=== PATIENT | female | born 1960 | race Caucasian/White ===

== ENCOUNTER → 2017-05-09 15:01 | Outpatient (CLI) | payer BC, SELFPAY ==
[2017-05-09 09:01] VITALS: BP 137/89; BMI 21.4
[2017-05-14 14:45] LABS: HPV APTIMA, High Risk Negative (Negative)
== END ==
PROVIDERS: Visit Provider Nurse Practitioner Women's Health
DX: Z12.4 Encounter for screening for malignant neoplasm of cervix (principal)
CPT/HCPCS: 88175; G0145

== ENCOUNTER → 2017-06-17 10:43 | Outpatient (CLI) | payer BC, SELFPAY ==
--- NOTE | 2017-06-17 10:46 | HPBI_ITS ---
MAMMOGRAPHY - BILATERAL SCREENING REASON FOR EXAM: Female, 56 years old. Routine annual screening examination. PERTINENT HISTORY: Non-contributory. TECHNIQUE: Digital bilateral breast moshe (3D mammographic acquisition) in the CC and MLO projections. 2-D mediolateral oblique (MLO) and craniocaudad (CC) views of both breasts were obtained. CAD: Full Field Digital Mammography with Computer Added Detection was performed. COMPARISON: Comparison is made with prior outside examination dated July 07, 2015. FINDINGS: Breast Composition: The breasts are heterogeneously dense, which may obscure small masses. There are no dominant masses or suspicious calcifications. No other significant abnormalities are identified. There has been no significant change since the prior study. HPBI/SCREENING MAMM (CAD), BILAT IMPRESSION: Stable bilateral screening mammogram. Yearly follow-up mammogram recommended. (A) ASSESSMENT CATEGORY: BIRADS Category 1: Negative. A letter regarding these results will be sent to the patient by the facility within 30 days. Approximately 10% of breast cancers are not detected by mammography. A normal mammogram should not delay biopsy of a clinically suspicious abnormality. [id number] Electronically Signed: Gage Manzanares MD at 14:08 EDT Tel [phone], Service support ,
== END ==
PROVIDERS: PCP Family Medicine; Visit Provider Nurse Practitioner Women's Health
DX: Z12.31 Encounter for screening mammogram for malignant neoplasm of breast (principal)
CPT/HCPCS: 77063; 77067

== ENCOUNTER 2018-12-09 09:00 | Outpatient (RCR) | payer BC, SELFPAY ==
[2018-07-15 13:15] VITALS: BMI 21.4
--- NOTE | 2018-11-10 13:36 | HP.PTEVAL ---
Patient's Visit Information JOSHUA COX is a 58 year old F referred to Physical Therapy by Dylan Oliveira MD with a diagnosis of B upper neck pain. Date of Evaluation: 11/10/18 Physical Therapist: Bladimir Oh DPT - Visit Plan Frequency: 2x /Week Duration: 4-6 Weeks Plan: Start with US to L levator scap, L UT, SNAG rotation, levator scap/UT stretch. May trial DN as well. - Subjective Findings: Pt. is here today for her initial evaluation with diagnosis of Bilateral upper back pain, neck pain. Pt. attributes this to over use, over work with job activities. Pt. used to go to chiropractor without issues, but has not been back in a while. Pt. reprots having migrains as well. Pt. reports increased pain with lifting and stretching. Pt. reports decreased pain with OTC meds, and limited activities. Pt. reports having increased tension in her neck with work and driving activities. Pt. is hopeful to reduce her symptoms to get backt to all recreational activities. - Pain Cervical spine Pain Intensity (Out of 10): 3 Pain Intensity Range: 1, 7 B shoulder Pain Intensity (Out of 10): 1 Pain Intensity Range: 0, 6 - Objective POSTURE: Pt. has sligth FH posture with rounded shoulders. Pt. is able to correct without change in symptoms. PALPATION: Pt. has increased symptoms along levator scapulea and UT L worse than R. No pain through suboccipitals and no pain with spring testing (hypomobility noted throughout cervical and thoracic spine). NEURO: Normal throughout. ROM: cervical spine- flexin min/nil loss mild Pulling, ext min loss increase NW on L side, rotation R min/mod loss increase NW on L side, rotation R nil loss NE, SL L min loss increase NW left side, SBR min loss incerase NW L side. MMT: 5/5 throughout shoulder and scapular region. - Special Tests C/S Radiculapathy - Left Spurlings: Negative C/S Radiculapathy - Right Spurlings: Negative C/S Radiculapathy - Left Cervical distraction: Negative C/S Radiculapathy - Right Cervical distraction: Negative Sharp Berenice: Negative Vertebral Artery Test: Negative Alar Ligament Test: Negative - Goals Goal 1:: Pt. to be I with HEP. Goal Time Frame: 4-6 Weeks Goal 2:: Pt. to have full cervical ROM without increase in symptoms. Goal Time Frame: 4-6 Weeks Goal 3:: Pt. to sleep throughout the night without increase in symptoms. Goal Time Frame: 4-6 Weeks Goal 4:: Pt. to resume all work activities without increase in symptoms. Goal Time Frame: 4-6 Weeks Goal 5:: Pt. to demonstrate improve posture throughout therapy session. Goal Time Frame: 4-6 Weeks - Rehabilitation Potential Physical Therapy Diagnosis: Pt. has signs and symptoms consistent with B neck pain with L worse than R. Pt. has increased tightness in her L UT and L levator scapulea. Pt. has decreased ROm of her neck especially with rotation to the L side. Pt. would benefit from PT to icnrease her cervical ROM, decrease muscle tension and decreased overall symptoms. Rehabilitation Potential: Good - Anticipated Interventions Patient/Client Instruction: Educate patient on: Condition, Plan of Care, Risk Factors, Benefits of Fitness Program For the Purpose of:: To improve health and function, To foster healthy habits, To improve decision making, To improve self management, To prevent re-injury Therapeutic Exercise to Include: Strength training, Power training, Endurance training, Body mechanics, Postural training, Flexibilty training For the Purpose of:: To increase ROM, To improve nutrient delivery to tissue, To increase oxygenation perfusion, To improve muscle performance and motor function, To improve health of tissue, To decrease soft tissue restriction, To increase flexibility/ROM Manual Therapy Techniques to Include: Mobilization, Manipulation, Passive ROM, Functional dry needling, Soft tissue mobilization For the Purpose of:: To decrease pain, To decrease swelling/inflammation, To increase ROM Ultrasound (thermal/non thermal): Yes For the Purpose of:: To decrease pain, To increase ROM Thank you for the opportunity to evaluate your patient. For Medicare and Medicare HMO plans, please review the plan of care and approve it. It will need to be FAXED BACK to us at [phone] for Medicare purposes. For Medicare only, by signing this I certify the plan of care. Please let me know if there are questions or concerns regarding this plan of care. Physician Signature: Date:
--- NOTE | 2019-05-05 09:18 | HP.PT.NRP ---
HP - Discharge Summary (1) - Patient Information JOSHUA COX was seen in my office for initial evaluation on 11/10/18. The following Plan of Care was established for this patient: Initial Frequency: 2x /Week Initial Duration: 4-6 Weeks - Anticipated Interventions Patient/Client Instruction: Educate patient on: Condition, Plan of Care, Risk Factors, Benefits of Fitness Program For the Purpose of:: To improve health and function, To foster healthy habits, To improve decision making, To improve self management, To prevent re-injury Therapeutic Exercise to Include: Strength training, Power training, Endurance training, Body mechanics, Postural training, Flexibilty training For the Purpose of:: To increase ROM, To improve nutrient delivery to tissue, To increase oxygenation perfusion, To improve muscle performance and motor function, To improve health of tissue, To decrease soft tissue restriction, To increase flexibility/ROM Manual Therapy Techniques to Include: Mobilization, Manipulation, Passive ROM, Functional dry needling, Soft tissue mobilization For the Purpose of:: To decrease pain, To decrease swelling/inflammation, To increase ROM Ultrasound (thermal/non thermal): Yes For the Purpose of:: To decrease pain, To increase ROM This patient was last seen in our office 12/02/18. Pertinent comments regarding their Physical therapy will appear below: PT. was seen in PT for her neck and UT pain. Pt. did well and was to continue on her own. Pt. has not been seen in several months and will be DC from PT at this point in time. At this point I will be discontinuing this patient from physical therapy. I would be happy to see this patient again in the future if found appropriate by the physician. Thank you! Bladimir Oh DPT
== END 2018-12-09 19:00 | disposition home or self-care (01) ==
LOC: PT 09:00
PROVIDERS: Family Provider Family Medicine; PCP Family Medicine; Referring Provider Family Medicine; Visit Provider Family Medicine
DX: M54.6 Pain in thoracic spine (principal); M54.2 Cervicalgia; G89.29 Other chronic pain; S46.819D Strain of other muscles, fascia and tendons at shoulder and upper arm level, unspecified arm, subsequent encounter
CPT/HCPCS: 97035; 97110; 97140; 97161

== ENCOUNTER → 2019-12-02 12:54 | Outpatient (CLI) | payer BC, SELFPAY ==
[2018-07-15 13:15] VITALS: BMI 21.4
--- NOTE | 2019-12-02 12:54 | BI_ITS ---
MAMMOGRAPHY - BILATERAL SCREENING REASON FOR EXAM: Female, 59 years old. Routine annual screening examination. PERTINENT HISTORY: Non-contributory. TECHNIQUE: Digital bilateral breast annabel (3D mammographic acquisition) in the CC and MLO projections. 2-D mediolateral oblique (MLO) and craniocaudad (CC) views of both breasts were obtained. CAD: Full Field Digital Mammography with Computer Added Detection was performed. COMPARISON: Comparison is made with prior study of 06/17/2017. FINDINGS: Breast Composition: The breasts are heterogeneously dense, which may obscure small masses. There are no dominant masses or suspicious calcifications. No other significant abnormalities are identified. There has been no significant change since the prior study. BI/SCREEN MAMM (CAD) W/ANNABEL BILAT IMPRESSION: Stable bilateral screening mammogram. Yearly follow-up mammogram recommended. (A) ASSESSMENT CATEGORY: BIRADS Category 1: Negative. A letter regarding these results will be sent to the patient by the facility within 30 days. Approximately 10% of breast cancers are not detected by mammography. A normal mammogram should not delay biopsy of a clinically suspicious abnormality. [id number] Electronically Signed: Gage Manzanares, at 14:28 EDT , Service support ,
== END ==
PROVIDERS: PCP Family Medicine; Referring Provider Nurse Practitioner Women's Health; Visit Provider Nurse Practitioner Women's Health
DX: Z12.31 Encounter for screening mammogram for malignant neoplasm of breast (principal)
CPT/HCPCS: 77063; 77067

== ENCOUNTER → 2020-01-04 12:05 | Outpatient (CLI) | payer BC, SELFPAY ==
[2019-12-02 13:37] VITALS: BMI 21.4
--- NOTE | 2020-01-04 12:08 | RAD_ITS ---
STUDY: X-RAY - CERVICAL SPINE REASON FOR EXAM: Female, 59 years old. CHRONIC NECK PAIN, PAIN RADIATED INTO LEFT ARM AND SHOULDER TECHNIQUE: 5 view(s) of the cervical spine were obtained. COMPARISON: None FINDINGS: No acute fracture, dislocation or osseous destruction. Odontoid intact. Lateral masses well aligned. Grade 1 spondylolisthesis at C5-6. Multilevel neural foraminal narrowing most severe at C4-5. Multilevel endplate spondylosis most severe at C5-6. Multilevel facet joint arthrosis predominating at the upper cervical spine (left greater than right). No significant soft tissue swelling. Normal lung apices. RAD/Cerv Spine 4 or 5 Views IMPRESSION: Cervical spine intact Degenerative changes predominating at C4-5 and C5-6 Electronically Signed: Farhan Connelly DO at 8:48 EDT Tel , Service support ,
== END ==
PROVIDERS: PCP Family Medicine; Referring Provider Family Medicine; Visit Provider Family Medicine
DX: M54.2 Cervicalgia (principal)
CPT/HCPCS: 72050

== ENCOUNTER → 2020-08-31 08:50 | Outpatient (CLI) | payer BC, SELFPAY ==
[2019-12-02 13:37] VITALS: BMI 21.4
[2020-08-31 10:37] LABS: Cholesterol 244 mg/dL (200); Glucose 83 mg/dL (74-106); High Density Lipoprotein 82 mg/dL; Triglycerides 83 mg/dL; Very Low Density Lipoprotein 17 mg/dL (5-40)
== END ==
PROVIDERS: PCP Family Medicine; Referring Provider Family Medicine; Visit Provider Family Medicine
DX: Z00.00 Encounter for general adult medical examination without abnormal findings (principal)
CPT/HCPCS: 36415; 80061; 82947

== ENCOUNTER 2020-11-25 19:50 | Emergency (ER) | payer BC, SELFPAY ==
[2020-11-25 19:50] VITALS: BP 130/88; PULSE 108; RESP 18; TEMP 36; O2SAT 94; BMI 20.6
[2020-11-25 20:14] LABS: Hemoglobin 13.9 g/dL (12.0-15.0); Mean Corp Hgb Conc 35.6 g/dL (32-36); Mean Corpuscular Hgb 28.4 pg (27.0-32.0); Mean Corpuscular Volume 79.6 fL (81-99); Mean Platelet Vol. 10.3 fl (6.2-12.0); Platelet Count 167 K/mm3 (150-450); RBC Distribution Width CV 11.9 % (11.6-14.6); RBC Distribution Width SD 34.4 fl (35.1-43.9); White Blood Count 3.7 K/mm3 (4.4-11.0)
[2020-11-25 21:29] LABS: ALB/GLOB Ratio 0.8 RATIO (0.9-2.4); AST(SGOT) 128 U/L (15-37); Alanine Aminotransfer ALT/SGPT 69 U/L (13-56); Albumin, Serum 3.1 g/dL (3.2-5.0); Alkaline Phosphatase 51 U/L (45-117); Anion Gap 6 (5-15); BUN 6 mg/dL (7-18); BUN/Creat Ratio 11.6 RATIO (10-20); Calcium,Total 7.8 mg/dL (8.5-10.1); Chloride 94 mmol/L (98-107); Creatinine, Serum 0.52 mg/dL (0.55-1.02); EST Glomerular Filtration Rate 129 mL/min (>60); Est Glom Filt Rate - Afr Amer 156 mL/min (>60); Estimated Creatinine Clearance 93.98 ml/min; Globulin 3.7 g/dL (2.2-4.2); Glucose 136 mg/dL (74-106); Potassium 3.7 mmol/L (3.5-5.1); Protein, Total 6.8 g/dL (6.4-8.2); Sodium Level 128 mmol/L (136-145)
[2020-11-25 21:59] LABS: Bacteria 0 SEEN /hpf (None Seen); Mucous, Urine 0 SEEN /hpf (<or=2+); Red Blood Cells-Urine 0 SEEN /hpf (0-5); Squamous Epithelial Cells - UA 0 SEEN /hpf (5-10); White Blood Cells 0 SEEN /hpf (0-5)
[2020-11-25 22:06] LABS: Color, Urine Yellow (Yellow); Glucose, Dipstick Normal (Normal); Ketone-Dipstick 5 mg/dl (Negative); Leukocyte Esterase-Dipstick Negative /ul (Negative); Nitrite-Dipstick Negative (Negative); Occult Blood-Urine 25 /ul (Negative); Protein-Dipstick 30 mg/dl (Negative); Urine Bilirubin Dipstick Negative (Negative); Urine Clarity Clear (Clear); Urine Urobilinogen Normal (Normal)
[2020-11-25 23:03] VITALS: BP 108/78; PULSE 97; RESP 20; TEMP 37.2; O2SAT 93
[2020-11-25] MEDS: Ondansetron 4 MG/2 ML Vial IV (23:28)
[2020-11-25] MEDS: Acetaminophen 500 MG Tablet PO (23:30)
--- NOTE | 2020-11-25 23:47 | EX.ED.DYSGE1 ---
HPI History of Present Illness Chief Complaint: Diarrhea Informant: patient Onset/Context/Timing Onset: Weeks (1) Context: Gradual Onset Timing: Continuous Quality: Cramping Location: Abdomen Worsened by: Nothing Relieved by: Ibuprofen Narrative Narrative: Patient presents with diarrhea and fatigue that has been getting worse over the last week. Patient had a recent dental extraction and was started on antibiotics for that. Patient states she was switched to a stronger antibiotic because the infection seemed to be getting worse. Patient states she started having diarrhea and stomach cramping after that. Patient also admits to a cough and some rhinorrhea. Patient took a home COVID-19 test yesterday which was positive. Patient states her also tested positive for COVID-19. Patient states her went to an urgent care and was also tested there for COVID-19 which was positive. Patient states she has been taking ibuprofen 800 mg tablets with some relief of her symptoms. Patient admits to low-grade fever at home. [facility] Medical History Abnormal Pap smear of cervix History of cervical cancer Migraines Transient global amnesia Home Medications epinephrine 0.3 mg/0.3 mL injection, auto-injector 0.3 mg IM ONCE 05/09/17 [History Last Taken Unknown] ferrous sulfate 325 mg (65 mg iron) tablet 325 mg PO TID tab 05/09/17 [History Last Taken Unknown] estradiol See Rx Instructions VAGINAL .COMPLEX #42.5 g 12/02/19 [Rx Last Taken Unknown] Allergy/AdvReac Type Severity Reaction Status Date / Time bee venom protein (honey bee) AdvReac Severe Anaphylaxis Verified 11/25/20 23:25 lactose AdvReac Intermediate Abd Verified 11/25/20 23:25 cramps/diarrhea Family History Father Heart disease Brother Heart disease Sister Heart disease Surgical History History of conization of cervix Social History Smoking Status: Never smoker alcohol intake: never substance use type: does not use caffeine: Yes what type of physical activity do you participate in: walking frequency: 1-2 times per week seatbelt use: always do you feel safe at home: Yes additional social history: 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 ROS ROS ED Constitutional Constitutional ED: Reports fever(s); Denies chills Eyes Eyes: Denies blurry vision or change in vision ENT ENT ED: Reports rhinorrhea; Denies sore throat Cardiovascular Cardiovascular: Denies chest pain or palpitations Respiratory/Chest Respiratory/Chest: Reports cough; Denies dyspnea Gastrointestinal Gastrointestinal: Reports abdominal pain and diarrhea; Denies nausea or vomiting Genitourinary Genitourinary ED: Denies dysuria or hematuria Musculoskeletal Musculoskeletal: Denies back pain or neck pain Integumentary Denies abscess or rash Neurologic Neurologic: Denies headache(s) or weakness Allergic/Immunologic Allergic/Immunologic ED: Denies mouth swelling or urticaria EXAM Physical Exam Const Vital Signs: 11/25/20 19:50 11/25/20 23:03 Temperature 96.8 F L 98.9 F Temperature Source Temporal Oral Pulse Rate 108 H 97 Respiratory Rate 18 20 H Blood Pressure 130/88 H 108/78 Blood Pressure Mean 102 88 Pulse Ox 94 93 Oxygen Delivery Method Room Air Room Air Positive well nourished and well developed General Appearance ED: well developed HEENT Reports moist mucous membranes HEENT Narrative: Oral mucosa is pink and moist. There is no evidence of any infection around the dental extraction site. There is no discharge or drainage. There is no bleeding. Neck supple and no JVD Chest Wall inspection of chest normal and palpation of chest normal Resp normal respiratory effort and clear to auscultation bilaterally Cardio regular rate and regular rhythm GI normal to inspection, nondistended, normoactive bowel sounds and non-tender Palpation: soft Neuro oriented x3, CN's II-XII intact bilaterally and no sensory deficits noted Sensorium / Orientation: alert Motor Exam: strength 5/5 throughout Psych mental status grossly normal MDM MDM MDM Narrative Medical decision making narrative: CBC shows a white blood cell count of 3.7. Comprehensive metabolic profile showed a mild hyponatremia of 128 and chloride of 94. Urinalysis does not show any evidence of urinary tract infection. COVID-19 rapid antigen was obtained here and was negative. Since she was on antibiotics recently, stool was sent for C. difficile. This is pending. Patient was given Zofran and Tylenol. Patient was advised of her findings. Since her as tested positive for Covid, patient was advised that the symptoms could still be from Covid even though her rapid antigen was negative. Patient was given Covid precautions. Patient was instructed to follow-up with her primary care physician in 3 to 5 days. Patient was instructed continue Tylenol or ibuprofen as needed for pain or aches. Patient understood and was agreeable with the plan. All questions were answered. Lab Data Attestation: I reviewed the patient's lab results. Labs: Laboratory Results - last 24 hr 11/25/20 11/25/20 11/25/20 20:02 20:02 21:50 WBC 3.7 L RBC 4.90 Hgb 13.9 Hct 39.0 MCV 79.6 L MCH 28.4 MCHC 35.6 RDW Std Deviation 34.4 L RDW Coeff of Trevor 11.9 Plt Count 167 MPV 10.3 Sodium 128 L Potassium 3.7 Chloride 94 L Carbon Dioxide 28.0 Anion Gap 6 BUN 6 L Creatinine 0.52 L Estim Creat Clear Calc 93.98 Est GFR (MDRD) Af Amer 156 Est GFR (MDRD) Non-Af 129 BUN/Creatinine Ratio 11.6 Glucose 136 H Calcium 7.8 L Total Bilirubin 0.40 AST 128 H ALT 69 H Alkaline Phosphatase 51 Total Protein 6.8 Albumin 3.1 L Globulin 3.7 Albumin/Globulin Ratio 0.8 L Urine Color Yellow Urine Clarity Clear Urine pH 7.0 Ur Specific [place] 1.010 Urine Protein 30 H Urine Glucose (UA) Normal Urine Ketones 5 H Urine Occult Blood 25 H Urine Nitrite Negative Urine Bilirubin Negative Urine Urobilinogen Normal Ur Leukocyte Esterase Negative Urine RBC 0 SEEN Urine WBC 0 SEEN Ur Squamous Epith Cells 0 SEEN Urine Bacteria 0 SEEN Urine Mucus 0 SEEN Discharge Plan Triage Chief Complaint: Diarrhea ED Provider: Farhan Perea Dx/Rx/DC Orders Clinical Impression: Viral illness, COVID-19 Instructions: Coronavirus Disease 2019 (COVID-19): Caring for Yourself or Others Prescriptions: No Action ferrous sulfate 325 mg (65 mg iron) tablet 325 mg PO TID RF: 0 epinephrine 0.3 mg/0.3 mL auto-injector 0.3 mg IM ONCE RF: 0 estradiol [Estrace] 0.01 % (0.1 mg/gram) cream See Rx Instructions vaginal .COMPLEX Qty: 42.5 RF: 2 Primary Care Provider: Dylan Oliveira Referrals: Dylan Oliveira MD [Primary Care Provider] - 5-7 Days Disposition Disposition: Home, Self Care
[2020-11-26 00:10] VITALS: BP 110/73; PULSE 73; RESP 24; O2SAT 95
== END 2020-11-26 00:12 | disposition home or self-care (01) ==
PROVIDERS: Emergency Provider Emergency Medicine; PCP Family Medicine
DX: U07.1 COVID-19 (principal); E87.1 Hypo-osmolality and hyponatremia; R19.7 Diarrhea, unspecified; R10.9 Unspecified abdominal pain; Z85.41 Personal history of malignant neoplasm of cervix uteri
CPT/HCPCS: 80053; 81001; 85027; 87426; 87493; 96374; 99284; J7030; A4216; J2405

== ENCOUNTER 2020-11-28 12:32 | Inpatient (IN) | payer BC, SELFPAY ==
[2020-11-28] VITALS (11 sets, daily range): BP systolic 124–130; BP diastolic 73–89; PULSE 72–97; RESP 16–23; TEMP 36.3–37.4; O2SAT 86–98; BMI 20.3; BMI 20.7
--- NOTE | 2020-11-28 13:01 | EKG12_ITS ---
Test Reason : Blood Pressure : / mmHG Vent. Rate : 076 BPM Atrial Rate : 076 BPM P-R Int : 126 ms QRS Dur : 084 ms QT Int : 364 ms P-R-T Axes : 049 000 019 degrees QTc Int : 409 ms Sinus rhythm with occasional Premature ventricular complexes Otherwise normal ECG Confirmed by SRIRAM MAYS, HALI ([id number]), restaurant expeditor ANA RICHARD ([id number]) on 11/30/2020 9:34:45 AM Referred By: JOLLY Confirmed By:HALI BHATIA MD
--- NOTE | 2020-11-28 13:04 | EX.ED.DYSGE1 ---
HPI History of Present Illness Chief Complaint: Nausea/Vomiting Detail of Chief Complaint: Weakness and low pulse ox Informant: patient and family Onset/Context/Timing Onset: Today (Low pulse ox noted this morning) and Days (Onset of illness 6 days ago and read HPI narrative) Context: Sudden Onset Timing: Continuous Quality: Generalized weakness, nausea, diarrhea, shortness of breath Current Severity: Mild Maximum Severity: Severe Worsened by: Dyspnea on exertion and lightheadedness with standing Relieved by: Nothing Associated Symptoms Associated Symptoms: Poor p.o. intake and fever Narrative Narrative: Patient is 60-year-old woman who presents because of generalized illness. Her illness started when she had complications due to tooth implant. The implant got infected. She was placed on 2 sets of antibiotics. She subsequently developed diarrhea. She then began to feel worse. She and her did a home Covid test which was positive. She apparently was seen end of last week and had a negative Covid test. She has had poor p.o. intake of lung problems. She denies black or maroon-colored stool. She denies blood or mucus in the diarrhea. She is not had a loose stool since yesterday. Her daughter gave her Imodium. She still feels nauseous. She still complains of generalized weakness. Daughter states she has not done much for the past 2 to 3 days and had poor p.o. intake. Prior similar symptoms: Yes Recent Illness/Hospitalization: Yes [facility] Medical History Abnormal Pap smear of cervix History of cervical cancer Migraines Transient global amnesia Home Medications epinephrine 0.3 mg/0.3 mL injection, auto-injector 0.3 mg IM ONCE 05/09/17 [History Last Taken Unknown] estradiol See Rx Instructions VAGINAL .COMPLEX #42.5 g 12/02/19 [Rx Last Taken Unknown] Allergy/AdvReac Type Severity Reaction Status Date / Time bee venom protein (honey bee) AdvReac Severe Anaphylaxis Verified 11/28/20 12:37 lactose AdvReac Intermediate Abd Verified 11/28/20 12:37 cramps/diarrhea Family History Father Heart disease Brother Heart disease Sister Heart disease Surgical History History of conization of cervix Social History (Updated 11/28/20 @ 13:[address] Loyd Persaud MD) household members: spouse housing: house Smoking Status: Never smoker alcohol intake: never substance use type: does not use caffeine: Yes what type of physical activity do you participate in: walking frequency: 1-2 times per week seatbelt use: always do you feel safe at home: Yes additional social history: Sushant Mcintyre ROS ROS ED Constitutional Constitutional ED: Reports chills, fever(s) and sweats Eyes Eyes: Denies blurry vision, change in vision or diplopia ENT ENT ED: Reports sore throat; Denies ear pain or rhinorrhea Cardiovascular Cardiovascular: Denies chest pain, orthopnea, palpitations or paroxysmal nocturnal dyspnea Respiratory/Chest Respiratory/Chest: Reports cough, dyspnea and dyspnea on exertion; Denies orthopnea or paroxysmal nocturnal dyspnea Gastrointestinal Gastrointestinal: Reports abdominal pain, diarrhea, nausea and vomiting; Denies constipation or melena Genitourinary Genitourinary ED: Denies dysuria, hematuria or urinary frequency Musculoskeletal Musculoskeletal: Reports arthralgias and myalgias; Denies back pain or neck pain Integumentary Denies rash Neurologic Neurologic: Reports weakness; Denies headache(s) or paresthesias Endocrine Endocrinology: Denies polydipsia, polyphagia or polyuria Allergic/Immunologic Allergic/Immunologic ED: Denies urticaria EXAM Physical Exam Const Vital Signs: 11/28/20 12:34 11/28/20 12:36 11/28/20 12:45 Temperature 97.8 F 97.8 F Temperature Source Temporal Temporal Pulse Rate 72 72 Respiratory Rate 20 H 20 H Blood Pressure 124/82 H 124/82 H Blood Pressure Mean 96 96 Pulse Ox 87 95 95 Oxygen Delivery Method Room Air Nasal Cannula Nasal Cannula Oxygen Flow Rate (L/min) 2 11/28/20 13:23 11/28/20 15:00 Temperature 98.6 F Temperature Source Temporal Pulse Rate 81 Respiratory Rate 23 H Blood Pressure 129/89 H Blood Pressure Mean 102 Pulse Ox 97 98 Oxygen Delivery Method Room Air Nasal Cannula Oxygen Flow Rate (L/min) 2 Positive well nourished and well developed General Appearance ED: well developed and other Patient does not appear well. Vital signs are remarkable for low pulse ox. ; Negative for cyanotic or diaphoretic HEENT Reports TM's clear and dry mucous membranes HEENT Narrative: Head is atraumatic normocephalic. Ears normal. Nares patent. Tympanic Membrane ED: Yes TM's clear Mouth ED: Yes dry mucous membranes Mouth: dry mucous membranes Eyes PERRL and EOMs intact bilaterally General Eye ED: Negative for pale conjunctiva or scleral icterus Neck no lymphadenopathy, supple and no JVD Chest Wall inspection of chest normal Resp normal respiratory effort Auscultation: rales bilateral lower and diminished lung sounds Cardio regular rate, regular rhythm, S1 normal heart sound, S2 normal heart sound and no murmurs GI normal to inspection, nondistended, normoactive bowel sounds, non-tender and non-distended Palpation: soft Back/Spine no CVA tenderness Cervical Spine: Negative for cervical spine tenderness Thoracic Spine / Upper Back: Negative for thoracic spinal tenderness or paraspinal muscle tenderness Lumbar Spine / Lower Back: Negative for lumbar spinal tenderness Extremity normal to inspection General Extremety ED: Negative for edema or tenderness General Extremity: Negative for edema Neuro oriented x3, CN's II-XII intact bilaterally and no sensory deficits noted Sensorium / Orientation: Negative for alert Motor Exam: strength 5/5 throughout Psych mental status grossly normal Skin no rashes or lesions noted, no wounds and skin turgor normal MDM MDM MDM Narrative Medical decision making narrative: Likely patient has pneumonia. Will repeat Covid test determined this is Covid pneumonia versus bacterial. Work-up was undertaken to assess for endorgan dysfunction. If there is evidence of infection will treat with antibiotics for community-acquired pneumonia. To help differentiate if Covid test is negative Miranda Odilia test was obtained. Suspect this is Covid since her had 2+ Covid test. Lab Data Attestation: I reviewed the patient's lab results. Lab results narrative: In light of the fact that patient's has Covid, she is neutropenic and has bilateral interstitial infiltrates patient in all likelihood has Covid. Since she is hypoxic she will require admission to the hospital. BUN and creatinine are normal. Labs: Laboratory Results - last 24 hr 11/28/20 11/28/20 11/28/20 12:57 12:57 13:15 WBC 3.4 L RBC 4.66 Hgb 13.2 Hct 38.5 MCV 82.6 MCH 28.3 MCHC 34.3 RDW Std Deviation 36.9 RDW Coeff of Trevor 12.2 Plt Count 224 MPV 9.7 Immature Gran % (Auto) 1.200 H Neut % (Auto) 71.6 H Lymph % (Auto) 16.1 L [place] % (Auto) 10.8 H Eos % (Auto) 0.0 Baso % (Auto) 0.3 Absolute Neuts (auto) 2.5 Absolute Lymphs (auto) 0.55 L Nucleated RBC % 0 Differential Comment COMMENT Diff Path Review May foll Sodium 132 L Potassium 4.1 Chloride 97 L Carbon Dioxide 30.0 Anion Gap 5 BUN 6 L Creatinine 0.42 L Estim Creat Clear Calc 115.83 Est GFR (MDRD) Af Amer 200 Est GFR (MDRD) Non-Af 165 BUN/Creatinine Ratio 14.5 Glucose 121 H Lactic Acid Calcium 8.0 L Total Bilirubin 0.40 AST 112 H ALT 76 H Alkaline Phosphatase 51 Total Protein 6.4 Albumin 2.7 L Globulin 3.7 Albumin/Globulin Ratio 0.7 L Procalcitonin COVID-19 (CRUZ) Positive 11/28/20 11/28/20 13:19 13:19 WBC RBC Hgb Hct MCV MCH MCHC RDW Std Deviation RDW Coeff of Trevor Plt Count MPV Immature Gran % (Auto) Neut % (Auto) Lymph % (Auto) [place] % (Auto) Eos % (Auto) Baso % (Auto) Absolute Neuts (auto) Absolute Lymphs (auto) Nucleated RBC % Differential Comment Diff Path Review Sodium Potassium Chloride Carbon Dioxide Anion Gap BUN Creatinine Estim Creat Clear Calc Est GFR (MDRD) Af Amer Est GFR (MDRD) Non-Af BUN/Creatinine Ratio Glucose Lactic Acid 0.9 Calcium Total Bilirubin AST ALT Alkaline Phosphatase Total Protein Albumin Globulin Albumin/Globulin Ratio Procalcitonin 0.04 COVID-19 (CRUZ) Radiography Chest X-Ray - ED: 1 View, Read by ED Physician, Heart, Mediastinum, Bony Structures, Right Infiltrate and Left Infiltrate Diagnostic Testing: Radiology Impression Chest X-Ray 11/28/20 13:16 IMPRESSION: Multifocal bilateral peripheral patchy airspace opacities (suspected typical/atypical infection) Electronically Signed: Farhan Connelly DO at 13:49 EDT Tel , Service support , EKG Initial EKG: Attestation: I personally reviewed and interpreted this EKG as follows: Interpretation: Sinus Rhythm (Sinus rhythm with a ventricular rate of 76. There are premature ventricular beats noted. NE interval is 126 ms. QRS duration 84 ms. QT duration 3 and 64 ms. [place] is normal.) Discharge Plan Dx/Rx/DC Orders Clinical Impression: Pneumonia due to 2019 novel coronavirus, Acute respiratory failure with hypoxia, Neutropenia due to infection Disposition Disposition: Acute Care Hospital [facility]
--- NOTE | 2020-11-28 13:16 | RAD_ITS ---
STUDY: X-RAY CHEST REASON FOR EXAM: Female, 60 years old. cough TECHNIQUE: Single AP portable view of the chest. COMPARISON: None. FINDINGS: Cardiac silhouette unremarkable. Pulmonary vascularity unremarkable. Aorta unremarkable. Multifocal bilateral peripheral patchy airspace opacities. No pleural effusions. Upper abdomen unremarkable. Osseous structures intact. No pneumothorax. RAD/Chest 1 View (Portable) IMPRESSION: Multifocal bilateral peripheral patchy airspace opacities (suspected typical/atypical infection) Electronically Signed: Farhan Connelly DO at 13:49 EDT Tel , Service support ,
[2020-11-28] MEDS: Ondansetron 4 MG/2 ML Vial IV ×3 (13:27→20:34)
[2020-11-28 13:43] LABS: Absolute Lymphocyte Count 0.55 X10^3/uL (0.83-4.51); Absolute Neutrophil Count 2.5 X10^3/uL (2.0-7.7); Basophil# 0.01 X10^3/uL; Basophil% 0.3 % (0-1); Hematocrit 38.5 % (37-47); Hemoglobin 13.2 g/dL (12.0-15.0); Lymphocyte # 0.55 X10^3/ul (0.83-4.51); Lymphocyte % 16.1 % (19-41); Mean Corp Hgb Conc 34.3 g/dL (32-36); Mean Corpuscular Hgb 28.3 pg (27.0-32.0); Mean Corpuscular Volume 82.6 fL (81-99); Mean Platelet Vol. 9.7 fl (6.2-12.0); Monocyte# 0.37 X10^3/uL; Monocyte% 10.8 % (0-10); NRBC Flagged by Analyzer 0 % (0-5); Neutrophil # 2.45 X10^3/uL (2.7-7.7); Neutrophil % 71.6 % (47-70); POSITIVE DIFFERENTIAL YES; POSITIVE MORPHOLOGY YES; Platelet Count 224 K/mm3 (150-450); RBC Distribution Width CV 12.2 % (11.6-14.6); RBC Distribution Width SD 36.9 fl (35.1-43.9); Red Blood Count 4.66 M/mm3 (4.2-5.4); White Blood Count 3.4 K/mm3 (4.4-11.0)
[2020-11-28 13:45] LABS: Differential Indicated SCAN CRITERIA MET
[2020-11-28 13:55] LABS: ALB/GLOB Ratio 0.7 RATIO (0.9-2.4); AST(SGOT) 112 U/L (15-37); Alanine Aminotransfer ALT/SGPT 76 U/L (13-56); Albumin, Serum 2.7 g/dL (3.2-5.0); Alkaline Phosphatase 51 U/L (45-117); Anion Gap 5 (5-15); BUN 6 mg/dL (7-18); BUN/Creat Ratio 14.5 RATIO (10-20); Chloride 97 mmol/L (98-107); Creatinine, Serum 0.42 mg/dL (0.55-1.02); EST Glomerular Filtration Rate 165 mL/min (>60); Est Glom Filt Rate - Afr Amer 200 mL/min (>60); Estimated Creatinine Clearance 115.83 ml/min; Globulin 3.7 g/dL (2.2-4.2); Glucose 121 mg/dL (74-106); Potassium 4.1 mmol/L (3.5-5.1); Protein, Total 6.4 g/dL (6.4-8.2); Sodium Level 132 mmol/L (136-145)
[2020-11-28 14:08] LABS: Lactic Acid 0.9 mmol/L (0.4-1.9)
[2020-11-28 14:26] LABS: Procalcitonin 0.04 ng/mL (0.00-0.09)
--- NOTE | 2020-11-28 14:50 | PCM.HP.STD ---
HPI - General General Date of Admission: 11/28/20 HPI Narrative JOSHUA COX, is a 60 F who presents via the ED on 11/28/2020 with a complaint of nausea and vomiting. She has a PMH as outlined. Her symptoms started 6-7 days ago, with associated shortness of breath. She had a tooth implant a few weeks ago, with resultant infection. She was placed on 2 different antibiotics, and started having diarrhea subsequently. Her tested positive for COVID, so as her symptoms worsened, she also tested for covid. Her home Covid test was positive. She also had on outpatient Covid test done a few days ago which was however negative. Patient has been progressively getting worse and getting more short of breath and weaker with associated nausea and decreased oral intake. She therefore decided come into the ED today. Vitals in the ED showed temperature of 98.6 Fahrenheit with pulse rate of 81, blood pressure of 129/89, respiratory rate of 23 and pulse ox of 98% on 2 L of oxygen. CBC showed WBC of 3.4 with hemoglobin of 13.2 and platelets of 244. Chemistry shows sodium of 132 and creatinine of 0.42 with elevated AST of 112 and ALT of 76. Covid PCR was positive. Chest x-ray showed multifocal bilateral peripheral patchy airspace disease. She has been admitted to be managed for acute hypoxic respiratory insufficiency due to COVID-19 infection. [facility] Medical History (Updated 11/28/20 @ 17:48 by Alka Sousa) Abnormal Pap smear of cervix Anxiety History of cervical cancer Migraines Post-menopausal Transient global amnesia Home Medications epinephrine 0.3 mg/0.3 mL injection, auto-injector 0.3 mg IM ONCE PRN 05/09/17 [History Last Taken Unknown] estradiol See Rx Instructions VAGINAL .COMPLEX #42.5 g 12/02/19 [Rx Last Taken Unknown] Allergy/AdvReac Type Severity Reaction Status Date / Time bee venom protein (honey bee) AdvReac Severe Anaphylaxis Verified 11/28/20 12:37 lactose AdvReac Intermediate Abd Verified 11/28/20 12:37 cramps/diarrhea Family History Father Heart disease Brother Heart disease Sister Heart disease Surgical History History of conization of cervix Social History (Updated 11/28/20 @ 13:[address] Loyd Persaud MD) household members: spouse housing: house Smoking Status: Never smoker alcohol intake: never substance use type: does not use caffeine: Yes what type of physical activity do you participate in: walking frequency: 1-2 times per week seatbelt use: always do you feel safe at home: Yes additional social history: Sushant Ramos [facility] Constitutional Constitutional: Reports anorexia, chills, fatigue, malaise and weakness; Denies change in weight, fever(s) or night sweats Eyes Eyes: Denies change in vision ENT HEENT: Denies dysphagia, headache(s), nasal congestion, nasal discharge or sore throat Cardiovascular Cardiovascular: Reports dyspnea on exertion; Denies chest pain, edema, lightheadedness, paroxysmal nocturnal dyspnea, rapid heart rate or syncope Respiratory/Chest Respiratory/Chest: Reports cough, dyspnea, shortness of breath at rest and shortness of breath with exertion; Denies excessive phlegm production, hemoptysis, productive cough or wheezing Gastrointestinal Gastrointestinal: Reports constipation, nausea and vomiting; Denies abdominal pain, diarrhea or dyspepsia Genitourinary Genitourinary: Denies burning urination, dysuria or urinary frequency Musculoskeletal Musculoskeletal: Denies back pain, joint stiffness or joint swelling Neurologic Neurologic: Denies confusion, dizziness, focal weakness, seizures or syncope Psychiatric Psychiatric: Denies anxiety or depression Hematologic/Lymphatic Hematologic/Lymphatic: Denies anemia Allergic/Immunologic Allergic/Immunologic: Denies asthma Vital Signs Vital Signs Vital Signs: 11/28/20 12:34 11/28/20 12:36 11/28/20 12:45 Temperature 97.8 F 97.8 F Temperature Source Temporal Temporal Pulse Rate 72 72 Respiratory Rate 20 H 20 H Blood Pressure 124/82 H 124/82 H Blood Pressure Mean 96 96 Pulse Ox 87 95 95 Oxygen Delivery Method Room Air Nasal Cannula Nasal Cannula Oxygen Flow Rate (L/min) 2 11/28/20 13:23 Temperature Temperature Source Pulse Rate Respiratory Rate Blood Pressure Blood Pressure Mean Pulse Ox 97 Oxygen Delivery Method Room Air Oxygen Flow Rate (L/min) Weight Weight: 115 lb Body Mass Index (BMI) 20.3 Physical Exam Const alert and oriented x3 Constitutional Narrative: lethargic General Appearance: cooperative HEENT hearing grossly normal bilaterally HEENT Narrative: dry mucosal membranes Eyes PERRL, EOMs intact bilaterally and conjunctivae normal Neck no lymphadenopathy Resp Resp Narrative: diminished breath sounds bibasally, no wheezes or crackles. On 2L of oxygen by nasal canula Cardio regular rate, regular rhythm, S1 normal heart sound, S2 normal heart sound and no murmurs GI normal to inspection, nondistended, normoactive bowel sounds, soft to palpation, non-tender and non-distended Extremity normal to inspection, full ROM and no clubbing, cyanosis or edema Peripheral Pulses: Yes pulses 2+ throughout Skin no rashes or lesions noted Neuro oriented x3, CN's II-XII intact bilaterally and moves all extremities Sensorium / Orientation: awake and alert Psych affect normal Results Lab / Micro Data Result Diagrams: 11/28/20 12:57 11/28/20 12:57 Labs: Laboratory Results - last 24 hr 11/28/20 12:57: WBC 3.4 L, RBC 4.66, Hgb 13.2, Hct 38.5, MCV 82.6, MCH 28.3, MCHC 34.3, RDW Std Deviation 36.9, RDW Coeff of Trevor 12.2, Plt Count 224, MPV 9.7, Immature Gran % (Auto) 1.200 H, Neut % (Auto) 71.6 H, Lymph % (Auto) 16.1 L, [place] % (Auto) 10.8 H, Eos % (Auto) 0.0, Baso % (Auto) 0.3, Absolute Neuts (auto) 2.5, Absolute Lymphs (auto) 0.55 L, Nucleated RBC % 0, Differential Comment COMMENT, Diff Path Review July foll 11/28/20 12:57: Sodium 132 L, Potassium 4.1, Chloride 97 L, Carbon Dioxide 30.0, Anion Gap 5, BUN 6 L, Creatinine 0.42 L, Estim Creat Clear Calc 115.83, Est GFR (MDRD) Af Amer 200, Est GFR (MDRD) Non-Af 165, BUN/Creatinine Ratio 14.5, Glucose 121 H, Calcium 8.0 L, Total Bilirubin 0.40, AST 112 H, ALT 76 H, Alkaline Phosphatase 51, Total Protein 6.4, Albumin 2.7 L, Globulin 3.7, Albumin/Globulin Ratio 0.7 L 11/28/20 13:19: Lactic Acid 0.9 11/28/20 13:19: Procalcitonin 0.04 Radiology Impression Chest X-Ray 11/28/20 13:16 IMPRESSION: Multifocal bilateral peripheral patchy airspace opacities (suspected typical/atypical infection) Electronically Signed: Farhan Connelly DO at 13:49 EDT Tel , Service support , Assessment & Plan Assessment/Plan (1) COVID-19: (2) Acute respiratory failure with hypoxia: PLAN: #Acute hypoxic respiratory insufficiency due to COVID 19 infection admit to med surg with telemetry start on IV decadron 6mg daily and IV remdesivir hydrate gently with IVF titrate oxygen to maintaiin sats >90% breathing treatment with bronchodilators consult ID IV [id number] prn DVT prophylaxis: lovenox. Check D dimer Code status: full code Patient and daughter counseled extensively about different types of CODE STATUS including full code, DNR CCA and DNR CCA, and the differences between them. Patient elects to be full code. Total [id number] time 18 minutes. Charges/Coding Visit Charges Inpatient E&M: 63982 Init Hosp L3 Procedures Hospitalists Procedures: 35749 Advncd Care Plan 30 Min
[2020-11-28 15:04] LABS: Probe Check PASS; Specimen Processing Control PASS
[2020-11-28] MEDS: 0.9% Normal Saline 1,000 ML 125 ML IV (18:06)
[2020-11-28 18:49] LABS: D-Dimer Quantitative (DVT/PE) 0.55 FEU/ug/m (0.27-0.49)
[2020-11-28 18:50] LABS: Alkaline Phosphatase 50 U/L (45-117); CPK Total, Creatine Kinase 179 U/L (26-192)
[2020-11-28] MEDS: guaiFENesin 10 ML UDC (200MG/10ML) 20 ML PO (20:34)
[2020-11-28] MEDS: Acetaminophen 325 MG Tablet 650 MG PO (20:34)
[2020-11-29] VITALS (14 sets, daily range): BP systolic 115–124; BP diastolic 74–83; PULSE 68–87; RESP 18; TEMP 36.6–37; O2SAT 93–97
--- NOTE | 2020-11-29 01:00 | PCS.PANDOC ---
PANDEMIC DOCUMENTATION INITIATED: Date: 11/14/2020 Time: 190
[2020-11-29] MEDS: 0.9% Normal Saline 1,000 ML 125 ML IV (03:11)
[2020-11-29] MEDS: proCHLORPERazine 10 MG/2 ML Vial 5 MG IV ×2 (03:42→20:49)
[2020-11-29] MEDS: guaiFENesin 10 ML UDC (200MG/10ML) 20 ML PO (03:42)
[2020-11-29] MEDS: oxyCODONE 5 MG Tablet PO (06:03)
[2020-11-29] MEDS: Acetaminophen 325 MG Tablet 650 MG PO ×2 (06:03→16:36)
[2020-11-29] MEDS: dexAMETHasone 4 MG Tablet 6 MG PO (06:03)
[2020-11-29] MEDS: Ondansetron 4 MG/2 ML Vial IV ×2 (06:04→16:36)
[2020-11-29 06:47] LABS: Absolute Lymphocyte Count 0.34 X10^3/uL (0.83-4.51); Basophil# 0.01 X10^3/uL; Basophil% 0.3 % (0-1); Hematocrit 36.1 % (37-47); Hemoglobin 11.8 g/dL (12.0-15.0); Lymphocyte # 0.34 X10^3/ul (0.83-4.51); Lymphocyte % 8.9 % (19-41); Mean Corp Hgb Conc 32.7 g/dL (32-36); Mean Corpuscular Hgb 27.7 pg (27.0-32.0); Mean Corpuscular Volume 84.7 fL (81-99); Mean Platelet Vol. 9.1 fl (6.2-12.0); Monocyte# 0.44 X10^3/uL; Monocyte% 11.5 % (0-10); NRBC Flagged by Analyzer 0 % (0-5); Neutrophil # 2.99 X10^3/uL (2.7-7.7); Neutrophil % 78.3 % (47-70); POSITIVE DIFFERENTIAL YES; POSITIVE MORPHOLOGY YES; Platelet Count 202 K/mm3 (150-450); RBC Distribution Width CV 11.9 % (11.6-14.6); RBC Distribution Width SD 36.6 fl (35.1-43.9); Red Blood Count 4.26 M/mm3 (4.2-5.4); White Blood Count 3.8 K/mm3 (4.4-11.0)
[2020-11-29 07:05] LABS: Differential Indicated SCAN CRITERIA MET
[2020-11-29 07:21] LABS: Differential Comment SCANNED
[2020-11-29 07:37] LABS: ALB/GLOB Ratio 0.7 RATIO (0.9-2.4); AST(SGOT) 80 U/L (15-37); Alanine Aminotransfer ALT/SGPT 70 U/L (13-56); Albumin, Serum 2.4 g/dL (3.2-5.0); Alkaline Phosphatase 51 U/L (45-117); Anion Gap 5 (5-15); BUN 6 mg/dL (7-18); BUN/Creat Ratio 17.3 RATIO (10-20); Calcium,Total 7.5 mg/dL (8.5-10.1); Chloride 105 mmol/L (98-107); Creatinine, Serum 0.35 mg/dL (0.55-1.02); EST Glomerular Filtration Rate 203 mL/min (>60); Est Glom Filt Rate - Afr Amer 246 mL/min (>60); Estimated Creatinine Clearance 139.63 ml/min; Globulin 3.5 g/dL (2.2-4.2); Glucose 101 mg/dL (74-106); Magnesium 2.1 mg/dL (1.6-2.6); Potassium 3.7 mmol/L (3.5-5.1); Protein, Total 5.9 g/dL (6.4-8.2); Sodium Level 137 mmol/L (136-145)
[2020-11-29] MEDS: Enoxaparin 40 MG/0.4 ML Syringe SC (08:59)
--- NOTE | 2020-11-29 10:11 | PCM.CONS.GEN ---
Assessment & Plan Assessment/Plan (1) COVID-19: PLAN: Sx started around 11/24, had been having some n/v/d while on augmentin prior to that for dental infection. On dex and remdesivir. Plan on 20 days quarantine from start of symptoms. She and household are unvaccinated. is monitoring pulse ox. Daughter is getting tested. Recommend vaccination in the next 1-2 months. Will follow, thank you (2) Acute respiratory failure with hypoxia: HPI Consult Data Date of Consult: 11/29/20 HPI Narrative HPI Narrative: JOSHUA COX, is a 60 F who presented with covid. Had dental infection, 11/16 given amoxicillin, then changed to augmentin. Started to have n/v/d around 11/19. dx with covid 11/24, and she started to have cough, fever, decreased appetite/po intake, mild aches. She came to ED 11/25, came back with worsened symptoms. Admitted, started on dex and remdesivir. Feeling about the same this AM. She is unvaccinated. Daughter at home is asymptomatic, unvaccinated, getting tested today. Full ROS performed and neg except as noted above. [facility] Medical History Abnormal Pap smear of cervix Anxiety History of cervical cancer Migraines Post-menopausal Transient global amnesia Home Medications epinephrine 0.3 mg/0.3 mL injection, auto-injector 0.3 mg IM ONCE PRN 05/09/17 [History Last Taken Unknown] estradiol See Rx Instructions VAGINAL .COMPLEX #42.5 g 12/02/19 [Rx Last Taken Unknown] Allergy/AdvReac Type Severity Reaction Status Date / Time bee venom protein (honey bee) AdvReac Severe Anaphylaxis Verified 11/28/20 12:37 lactose AdvReac Intermediate Abd Verified 11/28/20 12:37 cramps/diarrhea msg Allergy Hives Uncoded 11/28/20 18:28 Family History Father Heart disease Brother Heart disease Sister Heart disease Surgical History History of conization of cervix Social History (Updated 11/28/20 @ 13:[address] Loyd Persaud MD) household members: spouse housing: house Smoking Status: Never smoker alcohol intake: never substance use type: does not use caffeine: Yes what type of physical activity do you participate in: walking frequency: 1-2 times per week seatbelt use: always do you feel safe at home: Yes additional social history: Sushant Delacruz [facility] Physical Exam Const alert, oriented x3 and no apparent distress General Appearance: cooperative HEENT normocephalic and head/scalp atraumatic Eyes PERRL and EOMs intact bilaterally Neck supple and No nodes Lymph Lymphatic: no lymphadenopathy noted Resp clear to auscultation bilaterally Auscultation: diminished lung sounds Cardio regular rate and regular rhythm GI normal to inspection, nondistended, normoactive bowel sounds Extremity no clubbing, cyanosis or edema Skin no rashes or lesions noted Neuro CN's II-XII intact bilaterally Lab / Micro Data Result Diagrams: 11/29/20 06:38 11/29/20 06:38 Labs: Laboratory Results - last 24 hr 11/28/20 12:57: WBC 3.4 L, RBC 4.66, Hgb 13.2, Hct 38.5, MCV 82.6, MCH 28.3, MCHC 34.3, RDW Std Deviation 36.9, RDW Coeff of Trevor 12.2, Plt Count 224, MPV 9.7, Immature Gran % (Auto) 1.200 H, Neut % (Auto) 71.6 H, Lymph % (Auto) 16.1 L, [place] % (Auto) 10.8 H, Eos % (Auto) 0.0, Baso % (Auto) 0.3, Absolute Neuts (auto) 2.5, Absolute Lymphs (auto) 0.55 L, Nucleated RBC % 0, Differential Comment COMMENT, Diff Path Review July11/28/20 12:57: Sodium 132 L, Potassium 4.1, Chloride 97 L, Carbon Dioxide 30.0, Anion Gap 5, BUN 6 L, Creatinine 0.42 L, Estim Creat Clear Calc 115.83, Est GFR (MDRD) Af Amer 200, Est GFR (MDRD) Non-Af 165, BUN/Creatinine Ratio 14.5, Glucose 121 H, Calcium 8.0 L, Total Bilirubin 0.40, AST 112 H, ALT 76 H, Alkaline Phosphatase 51, Total Protein 6.4, Albumin 2.7 L, Globulin 3.7, Albumin/Globulin Ratio 0.7 L 11/28/20 12:57: Alkaline Phosphatase 50, Total Creatine Kinase 179 11/28/20 13:15: COVID-19 (CRUZ) Positive 11/28/20 13:19: Lactic Acid 0.9 11/28/20 13:19: Procalcitonin 0.04 11/28/20 18:20: D-Dimer Quant (PE/DVT) 0.55 H* 11/29/20 06:38: WBC 3.8 L, RBC 4.26, Hgb 11.8 L, Hct 36.1 L, MCV 84.7, MCH 27.7, MCHC 32.7, RDW Std Deviation 36.6, RDW Coeff of [place] 11.9, Plt Count 202, MPV 9.1, Immature Gran % (Auto) 1.000 H, Neut % (Auto) 78.3 H, Lymph % (Auto) 8.9 L, [place] % (Auto) 11.5 H, Eos % (Auto) 0.0, Baso % (Auto) 0.3, Absolute Neuts (auto) 3.0, Absolute Lymphs (auto) 0.34 L, Nucleated RBC % 0, Differential Comment SCANNED, Diff Path Review July11/29/20 06:38: Sodium 137, Potassium 3.7, Chloride 105, Carbon Dioxide 27.0, Anion Gap 5, BUN 6 L, Creatinine 0.35 L, Estim Creat Clear Calc 139.63, Est GFR (MDRD) Af Amer 246, Est GFR (MDRD) Non-Af 203, BUN/Creatinine Ratio 17.3, Glucose 101, Calcium 7.5 L, Magnesium 2.1, Total Bilirubin 0.40, AST 80 H, ALT 70 H, Alkaline Phosphatase 51, Total Protein 5.9 L, Albumin 2.4 L, Globulin 3.5, Albumin/Globulin Ratio 0.7 L Radiology Impression Chest X-Ray 11/28/20 13:16 IMPRESSION: Multifocal bilateral peripheral patchy airspace opacities (suspected typical/atypical infection) Electronically Signed: Farhan Connelly DO at 13:49 EDT Tel , Service support ,
--- NOTE | 2020-11-29 11:21 | PCM.PN.HOSP ---
Subjective Subjective Feels unless. Notes that tooth anchor site on lower right mandible is feeling better. Objective Data Objective Data Vital Signs: Vital Signs Temp Pulse Resp BP Pulse Ox 36.6 C 79 18 115/81 H 96 11/29/20 09:05 11/29/20 09:05 11/29/20 09:05 11/29/20 09:05 11/29/20 09:05 Oxygen Flow Rate (L/min) 2 Oxygen Delivery Method Nasal Cannula Weight: 53.07 kg Body Mass Index (BMI) 20.7 Intake & Output: Intake and Output for Last 24 Hours 11/27/20 11/28/20 11/29/20 23:59 23:59 23:59 Intake Total 1408.33 / 1408.33 821.25 / 821.25 Balance 1408.33 / 1408.33 821.25 / 821.25 Lab / Micro Data Result Diagrams: 11/29/20 06:38 11/29/20 06:38 Labs: Laboratory Results - last 24 hr 11/28/20 12:57: WBC 3.4 L, RBC 4.66, Hgb 13.2, Hct 38.5, MCV 82.6, MCH 28.3, MCHC 34.3, RDW Std Deviation 36.9, RDW Coeff of Trevor 12.2, Plt Count 224, MPV 9.7, Immature Gran % (Auto) 1.200 H, Neut % (Auto) 71.6 H, Lymph % (Auto) 16.1 L, [place] % (Auto) 10.8 H, Eos % (Auto) 0.0, Baso % (Auto) 0.3, Absolute Neuts (auto) 2.5, Absolute Lymphs (auto) 0.55 L, Nucleated RBC % 0, Differential Comment COMMENT, Diff Path Review July11/28/20 12:57: Sodium 132 L, Potassium 4.1, Chloride 97 L, Carbon Dioxide 30.0, Anion Gap 5, BUN 6 L, Creatinine 0.42 L, Estim Creat Clear Calc 115.83, Est GFR (MDRD) Af Amer 200, Est GFR (MDRD) Non-Af 165, BUN/Creatinine Ratio 14.5, Glucose 121 H, Calcium 8.0 L, Total Bilirubin 0.40, AST 112 H, ALT 76 H, Alkaline Phosphatase 51, Total Protein 6.4, Albumin 2.7 L, Globulin 3.7, Albumin/Globulin Ratio 0.7 L 11/28/20 12:57: Alkaline Phosphatase 50, Total Creatine Kinase 179 11/28/20 13:15: COVID-19 (CRUZ) Positive 11/28/20 13:19: Lactic Acid 0.9 11/28/20 13:19: Procalcitonin 0.04 11/28/20 18:20: D-Dimer Quant (PE/DVT) 0.55 H* 11/29/20 06:38: WBC 3.8 L, RBC 4.26, Hgb 11.8 L, Hct 36.1 L, MCV 84.7, MCH 27.7, MCHC 32.7, RDW Std Deviation 36.6, RDW Coeff of Trevor 11.9, Plt Count 202, MPV 9.1, Immature Gran % (Auto) 1.000 H, Neut % (Auto) 78.3 H, Lymph % (Auto) 8.9 L, [place] % (Auto) 11.5 H, Eos % (Auto) 0.0, Baso % (Auto) 0.3, Absolute Neuts (auto) 3.0, Absolute Lymphs (auto) 0.34 L, Nucleated RBC % 0, Differential Comment SCANNED, Diff Path Review July11/29/20 06:38: Sodium 137, Potassium 3.7, Chloride 105, Carbon Dioxide 27.0, Anion Gap 5, BUN 6 L, Creatinine 0.35 L, Estim Creat Clear Calc 139.63, Est GFR (MDRD) Af Amer 246, Est GFR (MDRD) Non-Af 203, BUN/Creatinine Ratio 17.3, Glucose 101, Calcium 7.5 L, Magnesium 2.1, Total Bilirubin 0.40, AST 80 H, ALT 70 H, Alkaline Phosphatase 51, Total Protein 5.9 L, Albumin 2.4 L, Globulin 3.5, Albumin/Globulin Ratio 0.7 L Radiography Diagnostic Testing: Radiology Impression Chest X-Ray 11/28/20 13:16 IMPRESSION: Multifocal bilateral peripheral patchy airspace opacities (suspected typical/atypical infection) Electronically Signed: Farhan Connelly DO at 13:49 EDT Tel , Service support , Physical Exam Const alert Resp normal respiratory effort, no retractions, no use of accessory muscles and clear to auscultation bilaterally Cardio regular rate, regular rhythm, S1 normal heart sound and S2 normal heart sound GI normal to inspection, nondistended, normoactive bowel sounds, soft to palpation, non-tender, non-distended and hepatosplenomegaly Assessment & Plan Assessment/Plan (1) COVID-19: PLAN: 1. acute COVID 19 pneumonia onset 11/24. Quarantine for 20 days Unvaccinated. Reason is she was advised not to do so before mammogram (despite it being widely available well beforehand) On dexamethasone and remdesivir 2. Acute hypoxic respiratory insufficiency Respiratory failure ruled out, at least at this point Turned off oxygen and she drifted down to 89% with just talking. Quickly improved to 95% on 2 liters Wean oxygen as tolerated 3. Recent dental implant/anchor infection Improving. Follow up with DDS once out of quarantine 4. VTE prophylaxis: LMWH Charges/Coding Visit Charges Inpatient E&M: 39978 Subs Hosp L2
--- NOTE | 2020-11-29 12:10 | CASEMGMT ---
MATEUS SMITH Assessment: Face to Face with pt for initial transition planning/care coordination assessment. MATEUS SMITH introduced self and role at [facility], pt voices understanding and consents to assessment. Pt is A/O x4 and answers all questions appropriately at this time. Pt sitting up in chair in no distress. Care providers, pharmacy, and demographics verified/updated. Admitting Dx: Covid 19 infection PCP: Jorge Oliveira Specialists: Pt denies having any specialists. [facility] Insurance: [employer] Prescription Benefit: yes LW/HPOA: Pt is not sure if she has a LW/DPOA. She states she thinks she did one years ago but does not know who her DPOA is. She declines need for further info on AD. LNOK: Adal Velasquez, ; Ami Velasquez, dtr Living Arrangements: Pt lives with and dtr in a two story house with three steps to enter. There are bedrooms and bathrooms on each level. Pt is using the main level currently. Pt reports being I in ADL's and denies concerns at home. Transportation: Pt drives self and denies concerns with transportation. DME/HHC/SNF: Pt denies having any DME, previous HHC or SNF stays. Pt states she received a positive test at home for COVID and then was tested at [facility]. Pt states her is also positive and they are quarantining from their dtr using separate bedrooms and bathrooms. They have family who can assist with groceries and supplies. Provided pt with local in network list of DME companies, pt chose [employer] should she need O2 upon dc. Pt states no concerns with going home at time of dc. Pt states no further concerns/needs. CM to follow. Advised pt to ask CM if any further question/concerns/needs arise, voices understanding. Pt Goal: Home Plan: Home
[2020-11-29 12:34] LABS: Pathologist Review Reviewed
[2020-11-29 12:36] LABS: Pathologist Review Reviewed
--- NOTE | 2020-11-29 13:24 | WOUNDNOTE ---
Assisted patient back into bed from chair. Pt states she was slightly lightheaded while up in chair. tolerated getting back to bed well. Denies further needs at this time.
[2020-11-29] MEDS: 0.9% Saline Lock 10 ML Syringe IV (20:50)
[2020-11-29] MEDS: MELATONIN 3 MG TABLET PO (23:15)
[2020-11-30] VITALS (11 sets, daily range): BP systolic 113–125; BP diastolic 76–78; PULSE 64–77; RESP 18–20; TEMP 36.9; O2SAT 90–94
[2020-11-30] MEDS: Ondansetron 4 MG/2 ML Vial IV (04:22)
[2020-11-30] MEDS: 0.9% Saline Lock 10 ML Syringe IV (04:28)
[2020-11-30 07:26] LABS: Hemoglobin 11.9 g/dL (12.0-15.0); Mean Corpuscular Hgb 28.2 pg (27.0-32.0); Mean Corpuscular Volume 82.9 fL (81-99); Mean Platelet Vol. 9.7 fl (6.2-12.0); Platelet Count 263 K/mm3 (150-450); RBC Distribution Width CV 11.8 % (11.6-14.6); RBC Distribution Width SD 35.7 fl (35.1-43.9); Red Blood Count 4.22 M/mm3 (4.2-5.4); White Blood Count 6.8 K/mm3 (4.4-11.0)
[2020-11-30 08:02] LABS: ALB/GLOB Ratio 0.7 RATIO (0.9-2.4); AST(SGOT) 39 U/L (15-37); Alanine Aminotransfer ALT/SGPT 54 U/L (13-56); Albumin, Serum 2.4 g/dL (3.2-5.0); Alkaline Phosphatase 52 U/L (45-117); Anion Gap 6 (5-15); BUN 10 mg/dL (7-18); BUN/Creat Ratio 28.8 RATIO (10-20); Calcium,Total 7.8 mg/dL (8.5-10.1); Chloride 100 mmol/L (98-107); Creatinine, Serum 0.35 mg/dL (0.55-1.02); EST Glomerular Filtration Rate 203 mL/min (>60); Est Glom Filt Rate - Afr Amer 246 mL/min (>60); Estimated Creatinine Clearance 139.63 ml/min; Globulin 3.6 g/dL (2.2-4.2); Glucose 103 mg/dL (74-106); Potassium 3.7 mmol/L (3.5-5.1); Sodium Level 133 mmol/L (136-145)
[2020-11-30] MEDS: Enoxaparin 40 MG/0.4 ML Syringe SC (08:44)
[2020-11-30] MEDS: dexAMETHasone 4 MG Tablet 6 MG PO (08:44)
[2020-11-30] MEDS: proCHLORPERazine 10 MG/2 ML Vial 5 MG IV (10:49)
--- NOTE | 2020-11-30 14:09 | PCM.DC ---
Discharge Instructions Diet Discharge Diet: No restrictions Activity Discharge Activity: Return to Normal Activity (ease back into normal routine. ) Additional Activity Instructions:: Self isolate for at least 20 days since symptoms began 11/24-12/14/2020 AND at least one day (24 hours) have passed since resolution of fever without the use of fever-reducing agents AND improvement of symptoms (e.g., cough, shortness of breath) When around people in the same room, wear a face mask. Individuals also in the room should wear a mask. If possible, use a different bathroom and bedroom. Perform adequate hand hygiene. Avoid sharing dishes, glasses, etc. Dressing / Incision Call your doctor if you observe: Fever of 101 or Higher and Shortness of breath Follow Up Care Test Results: Test results from this visit will be discussed in further detail at your follow-up appointment, if applicable. Discharge Plan Admission Admit Date/Time: 11/28/20 17:45 Primary Reason for Your Visit: COVID 19 Attending Provider: Farhan Montelongo Primary Care Provider: Dylan Oliveira Consulting Providers: Wolfgang Hernandez Discharge Orders/Prescriptions Prescriptions: New dexamethasone 6 mg tablet 6 mg PO DAILY 8 Days Qty: 8 RF: 0 Continued epinephrine 0.3 mg/0.3 mL auto-injector 0.3 mg IM ONCE PRN (Reason: dsryness) RF: 0 estradiol [Estrace] 0.01 % (0.1 mg/gram) cream See Rx Instructions vaginal .COMPLEX Qty: 42.5 RF: 2 Referrals / Follow Up: Dylan Oliveira MD [Primary Care Provider] - Within 1 Month Disposition Disposition (needs filled in before D/C Order can be placed): Home, Self Care
--- NOTE | 2020-11-30 14:15 | PCM.DC.SUM ---
Providers Date of Admission: 11/28/20 Primary Care Physician: Dr. Dylan Oliveira MD Consultations 11/28/20 17:47 Consult: Infectious Disease Routine Consulting Provider: Wolfgang Hernandez Reason for Consult: Covid-19 EMERGENT Consult: No MD Notified: Yes Date Notified: 11/29/20 Time Notified: 08:40 Method of Notification: Text Reason For Visit: COVID 19 INFECTION Diagnosis Discharge Diagnosis (1) COVID-19: Status: Acute Code(s): U07.1 - COVID-19 Medications at Discharge Home Medications epinephrine 0.3 mg/0.3 mL injection, auto-injector 0.3 mg IM ONCE PRN 05/09/17 estradiol See Rx Instructions VAGINAL .COMPLEX #42.5 g 12/02/19 dexamethasone 6 mg PO DAILY 8 Days #8 tab 11/30/20 Hospital Course Operations None Summary of Care Provided Minutes Spent on Discharge: 32 Hospital Course: 60-year-old female who had recent been dealing with a dental infection became sick again with was subsequently found to be COVID-19. Patient was unvaccinated and was started on dexamethasone and remdesivir. Patient was monitored and oxygenation did improve. Today the patient was ambulated in her room and she dropped down to 90% on room air. Patient did have some issues in regards to some motion sickness associated with the hospital bed and did have some vomiting with. Patient was observed for a few more hours and is overall feeling better and is feeling ready to go home. Patient advised to quarantine for a total of 20 days after the onset of her symptoms which is roughly around the 26. Patient advised also to get the vaccine on the next 1 to 2 months after she has convalesced from COVID-19. Physical Exam Narrative No respiratory distress. No conversational dyspnea. Patient was ambulated by marching continuously for 2 minutes dropped down to 90% on room air. Patient did some vomiting afterwards and during the retching. Her pulse ox did drop down to 89%. Eyes PERRL Resp normal respiratory effort, no retractions, no use of accessory muscles and clear to auscultation bilaterally Cardio regular rate, regular rhythm, S1 normal heart sound and S2 normal heart sound GI normal to inspection, nondistended, normoactive bowel sounds, soft to palpation, non-tender and non-distended Weight / BMI Weight Weight: 53.07 kg Body Mass Index (BMI) 20.7 ABG / Lab / Microbiology Data Result Diagrams: 11/30/20 06:35 11/30/20 06:35 Laboratory: Laboratory Results - last 24 hr 11/30/20 06:35: WBC 6.8, RBC 4.22, Hgb 11.9 L, Hct 35.0 L, MCV 82.9, MCH 28.2, MCHC 34.0, RDW Std Deviation 35.7, RDW Coeff of Trevor 11.8, Plt Count 263, MPV 9.7 11/30/20 06:35: Sodium 133 L, Potassium 3.7, Chloride 100, Carbon Dioxide 27.0, Anion Gap 6, BUN 10, Creatinine 0.35 L, Estim Creat Clear Calc 139.63, Est GFR (MDRD) Af Amer 246, Est GFR (MDRD) Non-Af 203, BUN/Creatinine Ratio 28.8 H, Glucose 103, Calcium 7.8 L, Total Bilirubin 0.40, AST 39 H, ALT 54, Alkaline Phosphatase 52, Total Protein 6.0 L, Albumin 2.4 L, Globulin 3.6, Albumin/Globulin Ratio 0.7 L Microbiology: Microbiology 11/28/20 13:19 Blood Culture (Wb) - Anticubital Left Blood Culture - Preliminary No growth in 48 hours. 11/28/20 13:12 Blood Culture (Wb) - Anticubital Right Blood Culture - Preliminary No growth in 48 hours. D/C Instructions Discharge Diet: No restrictions Additional Activity Instructions: Self isolate for at least 20 days since symptoms began 11/24-12/14/2020 AND at least one day (24 hours) have passed since resolution of fever without the use of fever-reducing agents AND improvement of symptoms (e.g., cough, shortness of breath) When around people in the same room, wear a face mask. Individuals also in the room should wear a mask. If possible, use a different bathroom and bedroom. Perform adequate hand hygiene. Avoid sharing dishes, glasses, etc. Call your doctor if you observe: Fever of 101 or Higher and Shortness of breath Meaningful Use Info Meaningful Use Diagnoses (Choose all that apply): None applicable Discharge Plan Admission Admit Date/Time: 11/28/20 17:45 Primary Reason for Your Visit: COVID 19 Attending Provider: Farhan Montelongo Primary Care Provider: Dylan Oliveira Consulting Providers: Wolfgang Hernandez Discharge Orders/Prescriptions Prescriptions: New dexamethasone 6 mg tablet 6 mg PO DAILY 8 Days Qty: 8 RF: 0 Continued epinephrine 0.3 mg/0.3 mL auto-injector 0.3 mg IM ONCE PRN (Reason: dsryness) RF: 0 estradiol [Estrace] 0.01 % (0.1 mg/gram) cream See Rx Instructions vaginal .COMPLEX Qty: 42.5 RF: 2 Referrals / Follow Up: Dylan Oliveira MD [Primary Care Provider] - Within 1 Month Disposition Disposition (needs filled in before D/C Order can be placed): Home, Self Care Charges/Coding Visit Charges Inpatient E&M: 16938 Disch Hosp
--- NOTE | 2020-11-30 15:29 | PHA.DC.MR ---
Pharmacy Service has performed discharge medication reconciliation for this patient. The patient's discharge medication list was reviewed for discrepancies and discrepancies were resolved. Attempted to call patient to public relations counselor, patient did not answer. Home Medications epinephrine 0.3 mg/0.3 mL injection, auto-injector 0.3 mg IM ONCE PRN 05/09/17 estradiol See Rx Instructions VAGINAL .COMPLEX #42.5 g 12/02/19 dexamethasone 6 mg PO DAILY 8 Days #8 tab 11/30/20
--- NOTE | 2020-12-01 15:01 | CASEMGMT ---
MATEUS CM Discharge Follow-Up Phone Call. Lace: 6 Strata: 2 Discharge Date: 11/30/20 Adm Dx: COVID Attempted discharge f/u phone call. No answer. Non-identifying VM received. Non-descript VM left requesting return call if there are any questions or concerns. Phone number provided. Aleksandra CORDOVA RN CM
== END 2020-11-30 16:05 | disposition home or self-care (01) | DRG 177 ==
LOC: ED 16:18 → MS3 18:10
PROVIDERS: Internal Medicine Infectious Disease; Admitting Provider Student in an Organized Health Care Education/Training Program; Emergency Provider Emergency Medicine; PCP Family Medicine
DX: U07.1 COVID-19 (principal); J12.82 Pneumonia due to coronavirus disease 2019; R09.02 Hypoxemia; R06.89 Other abnormalities of breathing; D70.3 Neutropenia due to infection; Z96.5 Presence of tooth-root and mandibular implants; Z85.41 Personal history of malignant neoplasm of cervix uteri
CPT/HCPCS: 36415; 71045; 80053; 82550; 83605; 83735; 84075; 84145; 85025; 85027; 85379; 87040; 87635; 93005; 97161; 97166; 99285; J7030; J7050; U0005; A4216; J2405; U0003

== ENCOUNTER → 2021-01-13 10:07 | Outpatient (CLI) | payer BC, SELFPAY ==
[2019-12-02 13:37] VITALS: BMI 21.4
--- NOTE | 2021-01-13 10:08 | BI_ITS ---
MAMMOGRAPHY - BILATERAL SCREENING REASON FOR EXAM: Female, 60 years old. Routine annual screening examination. PERTINENT HISTORY: Non-contributory. TECHNIQUE: Digital bilateral breast annabel (3D mammographic acquisition) in the CC and MLO projections. 2-D mediolateral oblique (MLO) and craniocaudad (CC) views of both breasts were obtained. CAD: Full Field Digital Mammography with Computer Added Detection was performed. COMPARISON: Comparison is made with prior study of 12/02/2019 and 06/17/2017. FINDINGS: Breast Composition: The breasts are heterogeneously dense, which may obscure small masses. There are no dominant masses or suspicious calcifications. No other significant abnormalities are identified. There has been no significant change since the prior study. BI/SCRN MAMM (CAD)W/ANNABEL BILAT IMPRESSION: Stable bilateral screening mammogram. Yearly follow-up mammogram recommended. (A) ASSESSMENT CATEGORY: BIRADS Category 1: Negative. A letter regarding these results will be sent to the patient by the facility within 30 days. Approximately 10% of breast cancers are not detected by mammography. A normal mammogram should not delay biopsy of a clinically suspicious abnormality. [id number] Electronically Signed: Gage Manzanares MD at 12:20 EDT , Service support ,
== END ==
PROVIDERS: PCP Family Medicine; Referring Provider Nurse Practitioner Women's Health; Visit Provider Nurse Practitioner Women's Health
DX: Z12.31 Encounter for screening mammogram for malignant neoplasm of breast (principal)
CPT/HCPCS: 77063; 77067

== ENCOUNTER 2022-10-25 20:34 | Emergency (ER) | payer BC, SELFPAY ==
[2022-10-25 20:36] VITALS: BP 148/99; PULSE 88; RESP 16; TEMP 36.3; O2SAT 98; BMI 21.9
--- NOTE | 2022-10-25 21:06 | EKG12_ITS ---
Test Reason : DYSRHYTHMIA Blood Pressure : / mmHG Vent. Rate : 087 BPM Atrial Rate : 087 BPM P-R Int : 130 ms QRS Dur : 082 ms QT Int : 358 ms P-R-T Axes : 052 -06 012 degrees QTc Int : 430 ms Normal sinus rhythm Normal ECG Confirmed by IMMANUEL MAYS, JULI ([id number]), film and video editor ANA RICHARD ([id number]) on 10/26/2022 9:23:54 AM Referred By: BHAVYA Confirmed By:JULI GAMBINO MD
--- NOTE | 2022-10-25 21:09 | EX.ED.DYSGE1 ---
HPI History of Present Illness Chief Complaint: Other, Pain/Inj Detail of Chief Complaint: Multiple symptoms and concern for cardiac pain Informant: patient Onset/Context/Timing Onset: Today (Episode early this morning that lasted 30 minutes, and see HPI narrative for further detail) Context: Sudden Onset Timing: Intermittent Quality: Discomfort Location: Superior right and left chest and anterior neck Current Severity: Mild Maximum Severity: Moderate Worsened by: Nothing Relieved by: Nothing Associated Symptoms Associated Symptoms: No associated symptoms that are concerning for cardiac. Did complain of nu Narrative Narrative: Patient is a 62-year-old woman who presents with chief complaint of head pain last evening. She took migraine medicine. She took another migraine medicine this morning. Migraine medicine consists of acetaminophen, aspirin and caffeine. She denies double vision, blurred vision loss of vision. Denies ringing in ears or decreased hearing. Denies trouble speech or swallowing. She denies chest pain but does complain of bilateral superior anterior chest discomfort located in the area of the clavicle and anterior right and left neck. There is no jaw pain. There is no associated symptoms. The pain does not radiate through to her back. Patient states she thought if she would go out with her sister and have something she would feel better. When she went out she did feel better. She then went home and was lying down when she developed numbness in her left upper extremity lasted 30 minutes. She denied weakness in that arm. She has recurrence of the discomfort in the superior anterior check. Patient does admit to being anxious. Her concern is that this is cardiac since every family never had cardiac problems. She is a non-smoker. She denies history of hypertension, diabetes or hypercholesterolemia. Prior similar symptoms: No Recent Illness/Hospitalization: No [facility] Medical History Abnormal Pap smear of cervix Anxiety COVID-19 History of cervical cancer Migraines Pneumonia due to 2019 novel coronavirus Post-menopausal Transient global amnesia Home Medications epinephrine 0.3 mg/0.3 mL injection, auto-injector 0.3 mg IM ONCE PRN dsryness 05/09/17 [History Last Taken Unknown] estradiol 0.01% (0.1 mg/gram) vaginal cream (Estrace) See Rx Instructions vaginal .COMPLEX #42.5 grams 12/02/19 [Rx Last Taken Unknown] clorazepate dipotassium 3.75 mg tablet 3.75 mg PO TID PRN anxiety #14 tabs 10/25/22 [Rx Last Taken Unknown] Allergy/AdvReac Type Severity Reaction Status Date / Time amoxicillin Allergy Mild Hives Verified 10/25/22 20:36 monosodium glutamate [msg] Allergy Hives Verified 10/25/22 20:36 bee venom protein (honey bee) AdvReac Severe Anaphylaxis Verified 10/25/22 20:36 lactose AdvReac Intermediate Abd Verified 10/25/22 20:36 cramps/diarrhea Family History Father Heart disease Brother Heart disease Sister Heart disease Surgical History History of conization of cervix Social History household members: spouse housing: house current occupation: [employer] Smoking Status: Never smoker alcohol intake: never substance use type: does not use caffeine: Yes what type of physical activity do you participate in: walking frequency: 1-2 times per week seatbelt use: always do you feel safe at home: Yes additional social history: Sushant MAO ED Constitutional Constitutional ED: Denies chills, fever(s), subjective, sweats or weight loss Eyes Eyes: Denies blurry vision, change in vision or diplopia ENT ENT ED: Reports other Details: Denies decreased hearing or tinnitus ; Denies ear pain, rhinorrhea or sore throat Cardiovascular Cardiovascular: Reports chest pain; Denies orthopnea, palpitations, paroxysmal nocturnal dyspnea or racing heartbeat Respiratory/Chest Respiratory/Chest: Denies cough, dyspnea, dyspnea on exertion, orthopnea or paroxysmal nocturnal dyspnea Gastrointestinal Gastrointestinal: Denies abdominal pain, constipation, diarrhea, melena, nausea or vomiting Genitourinary Genitourinary ED: Denies dysuria, hematuria or urinary frequency Musculoskeletal Musculoskeletal: Denies arthralgias, back pain, myalgias or neck pain Integumentary Denies abscess Neurologic Neurologic: Reports headache(s) and paresthesias; Denies weakness Psychiatric Psychiatric: Reports anxiety; Denies depression Endocrine Endocrinology: Denies cold intolerance or heat intolerance Hematologic/Lymphatic Hematologic/Lymphatic: Reports systems reviewed and no addt'l complaints, except as documented EXAM Physical Exam Const Vital Signs: 10/25/22 20:36 10/25/22 21:22 Temperature 97.3 F L Temperature Source Temporal Pulse Rate 88 Respiratory Rate 16 Respiratory Effort Normal Respiratory Pattern Normal Blood Pressure 148/99 H Blood Pressure Mean 115 Pulse Ox 98 Positive well nourished and well developed Constitutional Narrative: Patient appears anxious. She justifies her answers. General Appearance ED: well developed and NAD; Negative for cyanotic, diaphoretic or pallor HEENT Reports moist mucous membranes Eyes PERRL and EOMs intact bilaterally General Eye ED: Negative for pale conjunctiva or scleral icterus Neck no lymphadenopathy, supple and no JVD Chest Wall inspection of chest normal and palpation of chest normal Resp normal respiratory effort and clear to auscultation bilaterally Cardio regular rate, regular rhythm, S1 normal heart sound, S2 normal heart sound and no murmurs GI normal to inspection, nondistended, normoactive bowel sounds, non-tender, non-distended and no masses; Negative for hepatosplenomegaly GI Narrative: There is no palpable pulsatile mass. There is no abdominal bruit Auscultation: normoactive bowel sounds Palpation: soft Back/Spine no CVA tenderness Cervical Spine: Negative for cervical spine tenderness Thoracic Spine / Upper Back: Negative for thoracic spinal tenderness Lumbar Spine / Lower Back: Negative for lumbar spinal tenderness Extremity normal to inspection Extremity Narrative: Axillary, median, radial and ulnar function intact. Radial elbow. General Extremety ED: Negative for edema or tenderness General Extremity: Negative for edema Neuro oriented x3, CN's II-XII intact bilaterally and no sensory deficits noted Sensorium / Orientation: alert Psych Mood & Affect: anxious Skin no wounds and skin turgor normal General Skin Exam: elasticity normal; Negative for jaundice or pallor MDM MDM MDM Narrative Medical decision making narrative: With multiple symptoms. This may represent anxiety. This may represent atypical cardiac presentation. Will obtain CBC to assess white count and and differential. Also to evaluate for anemia. Clinically she is not anemic. BMP was obtained to assess renal function. Troponin was obtained. Only 1 troponin was ordered since she had pain greater than 12 hours ago. EKG was obtained as well because she is having this atypical pain to see if there is any evidence of acute ischemia. With a normal EKG and normal troponin patient was informed this is not her heart. She does feel much better after Ativan. Suspect this was an anxiety reaction. Lab Data Attestation: I reviewed the patient's lab results. Lab results narrative: CBC is normal. BMP is normal. Troponin is less than 4. Labs: Laboratory Results - last 24 hr 10/25/22 21:15 WBC 10.7 RBC 4.90 Hgb 13.9 Hct 41.6 MCV 84.9 MCH 28.4 MCHC 33.4 RDW Std Deviation 36.4 RDW Coeff of Trevor 11.9 Plt Count 411 MPV 10.1 Immature Gran % (Auto) 0.300 Neut % (Auto) 72.8 H Lymph % (Auto) 14.3 L [place] % (Auto) 6.4 Eos % (Auto) 5.5 H Baso % (Auto) 0.7 Absolute Neuts (auto) 7.8 H Absolute Lymphs (auto) 1.53 Nucleated RBC % 0 Sodium 135 L Potassium 3.6 Chloride 99 Carbon Dioxide 28.0 Anion Gap 8 BUN 7 Creatinine 0.84 Estim Creat Clear Calc 56.71 Est GFR (MDRD) Af Amer 88 Est GFR (MDRD) Non-Af 73 BUN/Creatinine Ratio 8.3 L Glucose 109 H Calcium 9.4 Troponin I High Sens 3 Discharge Plan Triage Chief Complaint: Other, Pain/Inj ED Provider: Loyd Persaud Dx/Rx/DC Orders Clinical Impression: Anterior neck pain, Atypical chest pain, Paresthesia of left upper extremity, Anxiety reaction Instructions: ED Anxiety Reaction Prescriptions: New clorazepate dipotassium 3.75 mg tablet 3.75 mg PO TID PRN (Reason: anxiety) Qty: 14 0RF No Action epinephrine 0.3 mg/0.3 mL auto-injector 0.3 mg IM ONCE PRN (Reason: dsryness) estradiol [Estrace] 0.01 % (0.1 mg/gram) cream See Rx Instructions vaginal .COMPLEX Qty: 42.5 2RF Rx Instructions: pea sized amount VAGINAL every other day X 4 weeks then twice a week; Primary Care Provider: Emile Ludwig Referrals: Emile Ludwig [[facility]] - Disposition Disposition: Home, Self Care
[2022-10-25] MEDS: LORazepam 2 MG/ML Syringe 0.5 MG IV (21:18)
[2022-10-25 21:28] LABS: Absolute Lymphocyte Count 1.53 X10^3/uL (0.83-4.51); Absolute Neutrophil Count 7.8 X10^3/uL (2.0-7.7); Basophil# 0.08 X10^3/uL; Basophil% 0.7 % (0-1); Eosinophil# 0.59 X10^3/uL; Eosinophils% 5.5 % (0-5); Hematocrit 41.6 % (37-47); Hemoglobin 13.9 g/dL (12.0-15.0); Lymphocyte # 1.53 X10^3/ul (0.83-4.51); Lymphocyte % 14.3 % (19-41); Mean Corp Hgb Conc 33.4 g/dL (32-36); Mean Corpuscular Hgb 28.4 pg (27.0-32.0); Mean Corpuscular Volume 84.9 fL (81-99); Mean Platelet Vol. 10.1 fl (6.2-12.0); Monocyte# 0.69 X10^3/uL; Monocyte% 6.4 % (0-10); NRBC Flagged by Analyzer 0 % (0-5); Neutrophil % 72.8 % (47-70); Platelet Count 411 K/mm3 (150-450); RBC Distribution Width CV 11.9 % (11.6-14.6); RBC Distribution Width SD 36.4 fl (35.1-43.9); White Blood Count 10.7 K/mm3 (4.4-11.0)
[2022-10-25 21:48] LABS: Anion Gap 8 (5-15); BUN 7 mg/dL (7-18); BUN/Creat Ratio 8.3 RATIO (10-20); Calcium,Total 9.4 mg/dL (8.5-10.1); Chloride 99 mmol/L (98-107); Creatinine, Serum 0.84 mg/dL (0.55-1.02); EST Glomerular Filtration Rate 73 mL/min (>60); Est Glom Filt Rate - Afr Amer 88 mL/min (>60); Estimated Creatinine Clearance 56.71 ml/min; Glucose 109 mg/dL (74-106); Potassium 3.6 mmol/L (3.5-5.1); Sodium Level 135 mmol/L (136-145); Troponin-I HS 3 pg/mL (3.0-54.0)
[2022-10-25 22:42] VITALS: PULSE 88; RESP 17; O2SAT 100
== END 2022-10-25 22:43 | disposition home or self-care (01) ==
PROVIDERS: Emergency Provider Emergency Medicine; PCP Family Medicine; Visit Provider Emergency Medicine
DX: M54.2 Cervicalgia (principal); R07.89 Other chest pain; F41.1 Generalized anxiety disorder; R20.2 Paresthesia of skin; Z79.899 Other long term (current) drug therapy
CPT/HCPCS: 80048; 84484; 85025; 93005; 96374; 99284; A4216

== ENCOUNTER → 2022-10-29 | Outpatient (CLI) | payer BC, SELFPAY ==
--- NOTE | 2022-10-29 09:31 | RAD_ITS ---
EXAM: XR CERVICAL SPINE, 4 OR 5 VIEWS CLINICAL INDICATION: PRIOR BONE SPURS,LEFT SIDE NECK PAIN TECHNIQUE: Frontal, lateral and bilateral oblique views of the cervical spine. COMPARISON: No relevant prior studies available. FINDINGS: VERTEBRAE: There is minimal posterior spondylolisthesis of C5 on C6. Preserved vertebral body height. No acute fracture. Preservation of the normal cervical lordosis. No significant facet arthropathy. DISC SPACES: There is disc space narrowing at C5-6. SOFT TISSUES: Unremarkable. No prevertebral soft tissue widening. LUNG APICES: Clear. RAD/Cerv Spine 4 or 5 Views IMPRESSION: Degenerative changes at C5-6 with disc space narrowing. There is minimal posterior spondylolisthesis of C5 on C6. There is no acute osseous abnormality. Electronically Signed: Pietro Lucero MD at 21:37 EDT ,
[2022-10-29 12:33] LABS: Absolute Lymphocyte Count 1.05 X10^3/uL (0.83-4.51); Absolute Neutrophil Count 6.7 X10^3/uL (2.0-7.7); Basophil# 0.06 X10^3/uL; Basophil% 0.7 % (0-1); Eosinophil# 0.26 X10^3/uL; Hematocrit 42.7 % (37-47); Hemoglobin 14.4 g/dL (12.0-15.0); Lymphocyte # 1.05 X10^3/ul (0.83-4.51); Lymphocyte % 12.3 % (19-41); Mean Corp Hgb Conc 33.7 g/dL (32-36); Mean Corpuscular Hgb 28.7 pg (27.0-32.0); Mean Corpuscular Volume 85.1 fL (81-99); Mean Platelet Vol. 9.8 fl (6.2-12.0); Monocyte# 0.43 X10^3/uL; NRBC Flagged by Analyzer 0 % (0-5); Neutrophil # 6.74 X10^3/uL (2.7-7.7); Neutrophil % 78.8 % (47-70); Platelet Count 414 K/mm3 (150-450); RBC Distribution Width CV 11.7 % (11.6-14.6); RBC Distribution Width SD 36.1 fl (35.1-43.9); Red Blood Count 5.02 M/mm3 (4.2-5.4); White Blood Count 8.6 K/mm3 (4.4-11.0)
[2022-10-29 12:57] LABS: Vitamin B12 197 pg/mL (211-911); Vitamin D,25 Hydroxy 24.2 ng/mL
[2022-10-29 14:08] LABS: ALB/GLOB Ratio 1.1 RATIO (0.9-2.4); AST(SGOT) 23 U/L (15-37); Alanine Aminotransfer ALT/SGPT 27 U/L (13-56); Alkaline Phosphatase 65 U/L (45-117); Anion Gap 8 (5-15); BUN 5 mg/dL (7-18); BUN/Creat Ratio 6.3 RATIO (10-20); Calcium,Total 9.1 mg/dL (8.5-10.1); Chloride 99 mmol/L (98-107); EST Glomerular Filtration Rate 77 mL/min (>60); Est Glom Filt Rate - Afr Amer 93 mL/min (>60); Globulin 3.8 g/dL (2.2-4.2); Glucose 98 mg/dL (74-106); Magnesium 2.3 mg/dL (1.6-2.6); Potassium 3.9 mmol/L (3.5-5.1); Protein, Total 7.8 g/dL (6.4-8.2); Sodium Level 132 mmol/L (136-145)
== END | disposition home or self-care (01) ==
PROVIDERS: PCP Nurse Practitioner Family; Referring Provider Nurse Practitioner Family; Visit Provider Nurse Practitioner Family
DX: G43.909 Migraine, unspecified, not intractable, without status migrainosus (principal); R53.83 Other fatigue; M54.2 Cervicalgia; M77.9 Enthesopathy, unspecified
CPT/HCPCS: 36415; 72050; 80053; 82306; 82607; 83735; 85025

== ENCOUNTER → 2023-10-29 | Outpatient (CLI) | payer BC, SELFPAY ==
[2023-10-29 12:35] LABS: Absolute Lymphocyte Count 1.23 X10^3/uL (0.83-4.51); Absolute Neutrophil Count 3.9 X10^3/uL (2.0-7.7); Basophil# 0.06 X10^3/uL; Eosinophil# 0.14 X10^3/uL; Eosinophils% 2.4 % (0-5); Hematocrit 40.9 % (37-47); Hemoglobin 13.7 g/dL (12.0-15.0); Lymphocyte # 1.23 X10^3/ul (0.83-4.51); Lymphocyte % 21.5 % (19-41); Mean Corp Hgb Conc 33.5 g/dL (32-36); Mean Corpuscular Hgb 27.9 pg (27.0-32.0); Mean Corpuscular Volume 83.3 fL (81-99); Monocyte# 0.35 X10^3/uL; Monocyte% 6.1 % (0-10); NRBC Flagged by Analyzer 0 % (0-5); Neutrophil # 3.94 X10^3/uL (2.7-7.7); Neutrophil % 68.8 % (47-70); Platelet Count 337 K/mm3 (150-450); RBC Distribution Width CV 11.9 % (11.6-14.6); RBC Distribution Width SD 36.2 fl (35.1-43.9); Red Blood Count 4.91 M/mm3 (4.2-5.4); White Blood Count 5.7 K/mm3 (4.4-11.0)
[2023-10-29 12:47] LABS: Vitamin B12 431 pg/mL (211-911); Vitamin D,25 Hydroxy 36.6 ng/mL
[2023-10-29 13:07] LABS: AST(SGOT) 20 U/L (15-37); Alanine Aminotransfer ALT/SGPT 19 U/L (13-56); Albumin, Serum 3.9 g/dL (3.2-5.0); Alkaline Phosphatase 59 U/L (45-117); Anion Gap 7 (5-15); BUN 7 mg/dL (7-18); BUN/Creat Ratio 8.6 RATIO (10-20); Calcium,Total 9.3 mg/dL (8.5-10.1); Chloride 100 mmol/L (98-107); Cholesterol 174 mg/dL (200); Creatinine, Serum 0.81 mg/dL (0.55-1.02); EST Glomerular Filtration Rate 76 mL/min (>60); Est Glom Filt Rate - Afr Amer 92 mL/min (>60); Globulin 3.8 g/dL (2.2-4.2); Glucose 113 mg/dL (74-106); High Density Lipoprotein 62 mg/dL; Protein, Total 7.7 g/dL (6.4-8.2); Sodium Level 134 mmol/L (136-145); Triglycerides 86 mg/dL; Very Low Density Lipoprotein 17 mg/dL (5-40)
== END | disposition home or self-care (01) ==
LOC: BFHLAB 10:04
PROVIDERS: PCP Nurse Practitioner Family; Referring Provider Nurse Practitioner Family; Visit Provider Nurse Practitioner Family
DX: Z00.01 Encounter for general adult medical examination with abnormal findings (principal); E55.9 Vitamin D deficiency, unspecified; E53.8 Deficiency of other specified B group vitamins
CPT/HCPCS: 36415; 80053; 80061; 82306; 82607; 85025

== ENCOUNTER → 2023-11-21 | Outpatient (CLI) | payer BC, SELFPAY ==
--- NOTE | 2023-11-21 07:09 | BI_ITS ---
MAMMOGRAPHY - BILATERAL SCREENING REASON FOR EXAM: Female, 63 years old. Routine annual screening examination. PERTINENT HISTORY: Non-contributory. TECHNIQUE: Digital bilateral breast annabel (3D mammographic acquisition) in the CC and MLO projections. 2-D mediolateral oblique (MLO) and craniocaudad (CC) views of both breasts were obtained. CAD: Full Field Digital Mammography with Computer Added Detection was performed. COMPARISON: Comparison is made with prior study January 13, 2021 and December 02, 2019. FINDINGS: Breast Composition: The breasts are heterogeneously dense, which may obscure small masses. There are no dominant masses or suspicious calcifications. No other significant abnormalities are identified. There has been no significant change since the prior study. BI/SCRN MAMM (CAD)W/ANNABEL BILAT IMPRESSION: Stable bilateral screening mammogram. Yearly follow-up mammogram recommended. (A) ASSESSMENT CATEGORY: BIRADS Category 1: Negative. A letter regarding these results will be sent to the patient by the facility within 30 days. Approximately 10% of breast cancers are not detected by mammography. A normal mammogram should not delay biopsy of a clinically suspicious abnormality. [id number] Electronically Signed: Gage Manzanares MD at 8:15 EDT ,
== END | disposition home or self-care (01) ==
LOC: OPBI 07:08
PROVIDERS: PCP Nurse Practitioner Family; Referring Provider Nurse Practitioner Family; Visit Provider Nurse Practitioner Family
DX: Z12.31 Encounter for screening mammogram for malignant neoplasm of breast (principal)
CPT/HCPCS: 77063; 77067

== ENCOUNTER → 2024-10-30 | Outpatient (CLI) | payer MEDICARE, SELFPAY ==
[2024-10-30 12:22] LABS: Hematocrit 41.7 % (37-47); Hemoglobin 14.4 g/dL (12.0-15.0); Immature Granulocytes Count 0.010 X10^3/uL (0.0-0.0); Mean Corp Hgb Conc 34.5 g/dL (32-36); Mean Corpuscular Volume 84.8 fL (81-99); Mean Platelet Vol. 9.8 fl (6.2-12.0); NRBC Flagged by Analyzer 0 % (0-5); Platelet Count 404 K/mm3 (150-450); RBC Distribution Width CV 11.6 % (11.6-14.6); RBC Distribution Width SD 35.3 fl (35.1-43.9); Red Blood Count 4.92 M/mm3 (4.2-5.4); White Blood Count 5.1 K/mm3 (4.4-11.0)
[2024-10-30 14:29] LABS: AST(SGOT) 22 U/L (<=31); Alanine Aminotransfer ALT/SGPT 19 U/L (<=34); Albumin, Serum 4.4 g/dL (3.4-4.8); Alkaline Phosphatase 58 U/L (35-104); Anion Gap 16 (5-15); BUN 8 mg/dL (4-19); BUN/Creat Ratio 10.6 RATIO (10-20); Calcium,Total 9.8 mg/dL (7.6-11.0); Carbon Dioxide 20.4 mmol/L (21.0-32.0); Chloride 100 mmol/L (98-108); Cholesterol 204 mg/dL (<=200); Globulin 3.1 g/dL (2.2-4.2); Glucose 91 mg/dL (70-99); Low Density Lipoprotein Calc. 106 mg/dL; Potassium 4.3 mmol/L (3.3-5.1); Triglycerides 88 mg/dL; Very Low Density Lipoprotein 18 mg/dL (5-40); Vitamin B12 163 pg/mL (180-914); Vitamin D,25 Hydroxy 29.6 ng/mL (30-100); cholesterol:hdl ratio screen 2.54
--- OUTSIDE RECORDS SUMMARY | 2024-10-30 17:33 | XMS RPT_ITS | CCD ---
Author Organization [facility] Care Team Providers Care Assistant Manager Of Operations Name Role Phone Xiomara Love Unavailable Maricarmen Cook Unavailable Unavailable Juno, Genia Referring Unavailable Juno, Genia Primary Care Unavailable Juno, Genia Attending Unavailable Juno, Genia Referring Unavailable Juno, Genia Primary Care Unavailable Juno, Genia Attending Unavailable Allergies Allergy Classification Reported Allergen(s) Allergy Type Date of Onset Reaction(s) Facility (2 sources) Amoxicillin Drug Allergy 3 [facility] (2 sources) Glutamate Drug Allergy 3 [facility] (2 sources) Lactose Drug Allergy 3 Abd cramps/diarrhea [facility] (2 sources) bee venom protein (honey bee) Propensity to adverse reactions 3 Anaphylaxis [facility] (1 source) Amoxicillin Drug Allergy 3 [facility] (1 source) Lactose Drug Allergy 3 [facility] (1 source) monosodium glutamate Drug allergy (disorder) 3 [facility] (1 source) bee venom protein (honey bee) Drug allergy (disorder) 3 [facility] Medications Current Medications Medication Drug Class(es) Dates Sig (Normalized) Sig (Original) clorazepate dipotassium 3.75 mg oral tablet (2 sources) Benzodiazepine Start: 10-25-2022 take 3.75 mg by mouth three times daily Clorazepate Dipotassium Active 3.75 MG PO THREE TIMES A DAY October 25, 2022 12:00am [id number] 0.3 ml EPINEPHrine 1 mg/ml auto-injector (2 sources) alpha-Adrenergic Agonist, beta-Adrenergic Agonist, Catecholamine Start: 05-09-2017 inject 0.3 mg by intramuscular injection once Epinephrine Active 0.3 MG IM ONCE May 09, 2017 1:00am estradiol 0.1 mg/ml vaginal cream (4 sources) Estrogen Start: 12-02-2019 Estradiol (Estrace) 0.01 % (0.1 mg/gram) cream Active 0 VAGINAL .COMPLEX 42.5 December 02, 2019 12:00am pea sized amount VAGINAL every other day X 4 weeks then twice a week; Start: 05-09-2017 End: 12-02-2019 Estradiol (Estrace) 0.01 % ( 0.1 mg/gram) cream Discontinued 1 GM VAGINAL TWICE A WEEK May 09, 2017 1:00am December 02, 2019 1:38pm Completed/Discontinued Medications Medication Drug Class(es) Dates Sig (Normalized) Sig (Original) dexamethasone 6 mg oral tablet (2 sources) Corticosteroid Start: 11-30-2020 End: 02-28-2021 take 6 mg by mouth once daily Dexamethasone Discontinued 6 MG PO DAILY 8 8 November 30, 2020 12:00am February 28, 2021 11:50am Problems Active Problems Problem Classification Problem Date Documented Da te Episodic/Chronic Anxiety disorders (2 sources) Anxiety; Translations: [Generalized anxiety disorder] 10-25-2022 Chronic Diseases of white blood cells (2 sources) Neutropenia associated with infectious disease; Translations: [Neutropenia due to infection] 12-04-2020 Chronic Immunizations and screening for infectious disease (1 source) Contact with and (suspected) exposure to other viral communicable diseases; Translations: [Exposure to SARS virus] 03-23-2020 Episodic Menopausal disorders (2 sources) Atrophic vaginitis; Translations: [Postmenopausal atrophic vaginitis] 12-02-2019 Chronic Nonspecific chest pain (2 sources) Atypical chest pain; Translations: [Other chest pain] 10-25-2022 Episodic Other nervous system disorders (2 sources) Paresthesia of left upper limb; Translations: [Paresthesia of skin] 10-25-2022 Episodic Other screening for suspected conditions (not mental disorders or infectious disease) (1 source) Encounter for screening mammogram for malignant neoplasm of breast; Translations: [Encounter for screening mammogram for malignant neoplasm of breast] Onset: 11-30-2023 Episodic Spondylosis; intervertebral disc disorders; other back problems (2 sources) Neck pain; Translations: [Cervicalgia] 10-25-2022 Episodic Viral infection (4 sources) COVID-19; Translations: [Pneumonia due to 2019 novel coronavirus] 02-28-2021 Episodic Past or Other Problems Problem Classification Problem Date Documented Da te Episodic/Chronic Unclassified (1 source) Unclassified (1 source) Exposure to SARS virus Results Test Name Value Interpretation Reference Range Facility SCRN MAMM (CAD)W/ANNABEL BILATo n 11-21-2023 SCRN MAMM (CAD)W/ANNABEL BILAT [facility] Imaging Services [address], [place] [id number] SCRN MAMM (CAD)W/ANNABEL BILAT MR#: [id number] Acct: [id number] Name: JOSHUA HUBBARD Rep #: [id number] : 1960 F 63 From: Gage winter MD PCP: TUSHAR Mendez Status: [facility] Study: SCRN MAMM (CAD)W/ANNABEL BILAT Date of Exam: 10/31 05/25 Exam# [id number] Ordering Dr: Genia FraireC [id number] MAMMOGRAPHY - BILATERAL SCREENING REASON FOR EXAM: Female, 63 years old. Routine annual screening examination. PERTINENT HISTORY: Non-contributory. TECHNIQUE: Digital bilateral breast annabel (3D mammographic acquisition) in the CC and MLO projections. 2-D mediolateral oblique (MLO) and craniocaudad (CC) views of both breasts were obtained. CAD: Full Field Digital Mammography with Computer Added Detection was performed. COMPARISON: Comparison is made with prior study January 13, 2021 and December 02, 2019. FINDINGS: Breast Composition: The breasts are heterogeneously dense, which may obscure small masses. There are no dominant masses or suspicious calcifications. No other significant abnormalities are identified. There has been no significant change since the prior study. BI/SCRN MAMM (CAD)W/ANNABEL BILAT IMPRESSION: Stable bilateral screening mammogram. Yearly follow-up mammogram recommended. (A) ASSESSMENT CATEGORY: BIRADS Category 1: Negative. A letter regarding these results will be sent to the patient by the facility within 30 days. Approximately 10% of breast cancers are not detected by mammography. A normal mammogram should not delay biopsy of a clinically suspicious abnormality. [id number] Electronically Signed: Gage Manzanares MD at 8:15 EDT , CC: TUSHAR Fraire [employer] Serials Assistant: Signed Normal [facility] CBC W/Diff, Automatedon 10-01 Absolute Lymph 1.23 X10 3/uL Normal 0.83-4.51 [facility] Comment on above: Performed By: #### L 506.1000, L500.4100, L500.4050, L503.0105, L100.0100 #### [facility] [address] [place], [address] Absolute Neut 3.9 X10 3/uL Normal 2.0-7.7 [facility] Comment on above: Performed By: #### L 506.1000, L500.4100, L500.4050, L503.0105, L100.0100 #### [facility] [address] [place], [address] Basophils/100 WBC (Bld) 1.0 % Normal 0-1 [facility] Comment on above: Performed By: #### L 506.1000, L500.4100, L500.4050, L503.0105, L100.0100 #### [facility] [address] [place], [address] Eosinophils/100 WBC (Bld) 2.4 % Normal 0-5 [facility] Comment on above: Performed By: #### L 506.1000, L500.4100, L500.4050, L503.0105, L100.0100 #### [facility] [address] [place], [address] Erythrocyte distribution width (RBC) [Ratio] 11.9 % Normal 11.6-14.6 [facility] Comment on above: Performed By: #### L 506.1000, L500.4100, L500.4050, L503.0105, L100.0100 #### [facility] [address] [place], [address] Hematocrit (Bld) [Volume fraction] 40.9 % Normal 37-47 [facility] Comment on above: Performed By: #### L 506.1000, L500.4100, L500.4050, L503.0105, L100.0100 #### [facility] [address] [place], [address] Hemoglobin (Bld) [Mass/Vol] 13.7 g/dL Normal 12.0-15.0 [facility] Comment on above: Performed By: #### L 506.1000, L500.4100, L500.4050, L503.0105, L100.0100 #### [facility] [address] [place], [address] IG% 0.200 Normal 0.0-0.9 [facility] Comment on above: Result Comment: IG% - Immature Granulocytes (promyelocytes, myelocytes and metamyelocytes) > 1% indicates that a LEFT SHIFT is Present. Performed By: #### L 506.1000, L500.4100, L500.4050, L503.0105, L100.0100 #### [facility] [address] [place], [address] Lymphocytes/100 WBC (Bld) 21.5 % Normal 19-41 [facility] Comment on above: Performed By: #### L 506.1000, L500.4100, L500.4050, L503.0105, L100.0100 #### [facility] [address] [place], [address] MCH (RBC) [Entitic mass] 27.9 pg Normal 27.0-32.0 [facility] Comment on above: Performed By: #### L 506.1000, L500.4100, L500.4050, L503.0105, L100.0100 #### [facility] [address] [place], [address] MCHC (RBC) [Mass/Vol] 33.5 g/dL Normal 32-36 [facility] Comment on above: Performed By: #### L 506.1000, L500.4100, L500.4050, L503.0105, L100.0100 #### [facility] [address] [place], [address] MCV (RBC) [Entitic vol] 83.3 fL Normal 81-99 [facility] Comment on above: Performed By: #### L 506.1000, L500.4100, L500.4050, L503.0105, L100.0100 #### [facility] [address] [place], [address] Monocytes/100 WBC (Bld) 6.1 % Normal 0-10 [facility] Comment on above: Performed By: #### L 506.1000, L500.4100, L500.4050, L503.0105, L100.0100 #### [facility] [address] [place], [address] Neutrophils/100 WBC (Bld) 68.8 % Normal 47-70 [facility] Comment on above: Performed By: #### L 506.1000, L500.4100, L500.4050, L503.0105, L100.0100 #### [facility] [address] [place], [address] Nucleated RBC (Bld) [#/Vol] 0 10*3/uL Normal 0-5 [facility] Comment on above: Performed By: #### L 506.1000, L500.4100, L500.4050, L503.0105, L100.0100 #### [facility] [address] [place], [address] Platelet mean volume (Bld) [Entitic vol] 10.0 fL Normal 6.2-12.0 [facility] Comment on above: Performed By: #### L 506.1000, L500.4100, L500.4050, L503.0105, L100.0100 #### [facility] [address] [place], [address] Platelets (Bld) [#/Vol] 337 10*3/uL Normal 150-450 [facility] Comment on above: Performed By: #### L 506.1000, L500.4100, L500.4050, L503.0105, L100.0100 #### [facility] [address] [place], [address] RBC (Bld) [#/Vol] 4.91 10*6/uL Normal 4.2-5.4 [facility] Comment on above: Performed By: #### L 506.1000, L500.4100, L500.4050, L503.0105, L100.0100 #### [facility] [address] [place], [address] RDW SD 36.2 fl Normal 35.1-43.9 [facility] Comment on above: Performed By: #### L 506.1000, L500.4100, L500.4050, L503.0105, L100.0100 #### [facility] [address] [place], [address] WBC (Bld) [#/Vol] 5.7 10*3/uL Normal 4.4-11.0 [facility] Comment on above: Performed By: #### L 506.1000, L500.4100, L500.4050, L503.0105, L100.0100 #### [facility] [address] [place], [address] Comprehensive Metabolic Prof [facility] 10-29-2023 Albumin [Mass/Vol] 3.9 g/dL Normal 3.2-5.0 [facility] Comment on above: Performed By: #### L 506.1000, L500.4100, L500.4050, L503.0105, L100.0100 #### [facility] [address] [place], [address] Albumin/Globulin [Mass ratio] 1.0 {ratio} Normal 0.9-2.4 [facility] Comment on above: Performed By: #### L 506.1000, L500.4100, L500.4050, L503.0105, L100.0100 #### [facility] [address] [place], [address] ALK P 59 U/L Normal 45-117 [facility] Comment on above: Performed By: #### L 506.1000, L500.4100, L500.4050, L503.0105, L100.0100 #### [facility] [address] [place], [address] ALT [Catalytic activity/Vol] 19 U/L Normal 13-56 [facility] Comment on above: Performed By: #### L 506.1000, L500.4100, L500.4050, L503.0105, L100.0100 #### [facility] [address] [place], [address] AST [Catalytic activity/Vol] 20 U/L Normal 15-37 [facility] Comment on above: Performed By: #### L 506.1000, L500.4100, L500.4050, L503.0105, L100.0100 #### [facility] [address] [place], [address] Bilirubin [Mass/Vol] 0.30 mg/dL Normal 0.20-1.00 [facility] Comment on above: Result Comment: For patients on eltrombopag therapy, use of Dimension [place] TBIL is not recommended. Performed By: #### L 506.1000, L500.4100, L500.4050, L503.0105, L100.0100 #### [facility] [address] [place], [address] BUN/CRE 8.6 RATIO Low 10-20 [facility] Comment on above: Performed By: #### L 506.1000, L500.4100, L500.4050, L503.0105, L100.0100 #### [facility] [address] [place], [address] CA,Total 9.3 mg/dL Normal 8.5-10.1 [facility] Comment on above: Performed By: #### L 506.1000, L500.4100, L500.4050, L503.0105, L100.0100 #### [facility] [address] [place], [address] Chloride [Moles/Vol] 100 mmol/L Normal 98-107 [facility] Comment on above: Performed By: #### L 506.1000, L500.4100, L500.4050, L503.0105, L100.0100 #### [facility] [address] [place], [address] CO2 [Moles/Vol] 27.0 mmol/L Normal 21.0-32.0 [facility] Comment on above: Performed By: #### L 506.1000, L500.4100, L500.4050, L503.0105, L100.0100 #### [facility] [address] [place], [address] Creatinine [Mass/Vol] 0.81 mg/dL Normal 0.55-1.02 [facility] Comment on above: Result Comment: The validity of the calculated GFR GFRAA in patients over 70 years has not been determined. Clinical correlation is essential. Performed By: #### L 506.1000, L500.4100, L500.4050, L503.0105, L100.0100 #### [facility] [address] [place], [address] EST GFR - AA 92 mL/min Normal >60 [facility] Comment on above: Result Comment: Afri can Palestinian GFR Calc Performed By: #### L 506.1000, L500.4100, L500.4050, L503.0105, L100.0100 #### [facility] [address] [place], [address] GAP 7 Normal 5-15 [facility] Comment on above: Performed By: #### L 506.1000, L500.4100, L500.4050, L503.0105, L100.0100 #### [facility] [address] [place], [address] GFR/1.73 sq M.predicted among non-blacks MDRD (S/P/Bld) [Vol rate/Area] 76 mL/min/{1.73_m2} Normal >60 [facility] Comment on above: Result Comment: Non- GFR Calc Performed By: #### L 506.1000, L500.4100, L500.4050, L503.0105, L100.0100 #### [facility] [address] [place], [address] Globulin (S) [Mass/Vol] 3.8 g/dL Normal 2.2-4.2 [facility] Comment on above: Performed By: #### L 506.1000, L500.4100, L500.4050, L503.0105, L100.0100 #### [facility] [address] [place], [address] Glucose [Mass/Vol] 113 mg/dL High 74-106 [facility] Comment on above: Result Comment: Fast ing Glucose result from 100 to 125 mg/dL suggests IMPAIRED HOMEOSTASIS per A.D.A. criteria. Performed By: #### L 506.1000, L500.4100, L500.4050, L503.0105, L100.0100 #### [facility] [address] [place], [address] Potassium [Moles/Vol] 4.0 mmol/L Normal 3.5-5.1 [facility] Comment on above: Performed By: #### L 506.1000, L500.4100, L500.4050, L503.0105, L100.0100 #### [facility] [address] [place], [address] Sodium [Moles/Vol] 134 mmol/L Low 136-145 [facility] Comment on above: Performed By: #### L 506.1000, L500.4100, L500.4050, L503.0105, L100.0100 #### [facility] [address] [place], [address] T PROT 7.7 g/dL Normal 6.4-8.2 [facility] Comment on above: Performed By: #### L 506.1000, L500.4100, L500.4050, L503.0105, L100.0100 #### [facility] [address] [place], [address] Urea nitrogen [Mass/Vol] 7 mg/dL Normal 7-18 [facility] Comment on above: Performed By: #### L 506.1000, L500.4100, L500.4050, L503.0105, L100.0100 #### [facility] [address] [place], [address] Lipid Profileon 10-29-2023 Cholesterol [Mass/Vol] 174 mg/dL Normal 200 [facility] Comment on above: Result Comment: <200 mg/dL Desirable 200-240 mg/dL Borderline >240 mg/dL High Risk Performed By: #### L 506.1000, L500.4100, L500.4050, L503.0105, L100.0100 #### [facility] [address] [place], [address] Cholesterol in HDL [Mass/Vol] 62 mg/dL Normal [facility] Comment on above: Result Comment: The drugs N-Acetylcysteine and Metamizole may falsely depress this assay. Reference Range HDL <40 mg/dL Low HDL Cholesterol HDL >or= 60 mg/dL High HDL Cholesterol Performed By: #### L 506.1000, L500.4100, L500.4050, L503.0105, L100.0100 #### [facility] [address] [place], [address] Cholesterol in LDL [Mass/Vol] 95 mg/dL Normal 0-130 [facility] Comment on above: Performed By: #### L 506.1000, L500.4100, L500.4050, L503.0105, L100.0100 #### [facility] [address] [place], [address] Cholesterol in VLDL [Mass/Vol] 17 mg/dL Normal 5-40 [facility] Comment on above: Performed By: #### L 506.1000, L500.4100, L500.4050, L503.0105, L100.0100 #### [facility] [address] [place], [address] Triglyceride [Mass/Vol] 86 mg/dL Normal [facility] Comment on above: Result Comment: The drugs N-Acetylcysteine and Metamizole may falsely depress this assay. Serum Triglycerides Reference Interval Normal <150 mg/dL Borderline high 150 - 199 mg/dL High 200 - 499 mg/dL Very High > or = 500 mg/dL Performed By: #### L 506.1000, L500.4100, L500.4050, L503.0105, L100.0100 #### [facility] [address] [place], [address] Vitamin B12on 10-29-2023 Cobalamin (Vitamin B12) [Mass/Vol] 431 pg/mL Normal 211-911 [facility] Comment on above: Performed By: #### L 506.1000, L500.4100, L500.4050, L503.0105, L100.0100 #### [facility] [address] [place], [address] Vitamin D,25 Hydroxyon 10-28 Vitamin D 25-OH 36.6 ng/mL Normal [facility] Comment on above: Result Comment: Karoline min D 25(OH) Status Range Deficiency <20 ng/mL (50nmol/L) Insufficiency 20 - 30 ng/mL (50 - 75 nmol/L) Sufficiency 30 - 100 ng/mL (75 - 250 nmol/L) Toxicity >100 ng/mL (>250 nmol/L) Performed By: #### L 506.1000, L500.4100, L500.4050, L503.0105, L100.0100 #### [facility] [address] [place], [address] Absolute lymphocyte countOrd ered By: Genia Fraire on 10-29-2022 Lymphocytes Auto (Unsp spec) [#/Vol] 1.05 10*3/uL 0.83-4.51 [facility] Basophil percentageOrdered B y: Genia Fraire on 10-29-2022 Basophils/100 WBC (Bld) 0.7 % 0-1 [facility] Bilirubin [Mass/Vol] 0.50 mg/dL 0.20-1.00 [facility] Comment on above: For patients on eltr ombopag therapy, use of Dimension [place] TBIL is not recommended. Chloride [Moles/Vol] 99 mmol/L 98-107 [facility] Eosinophils/100 WBC (Bld) 3.0 % 0-5 [facility] Glucose [Mass/Vol] 98 mg/dL 74-106 [facility] Neutrophils (Bld) [#/Vol] 6.7 10*3/uL 2.0-7.7 [facility] Neutrophils/100 WBC (Bld) 78.8 % 47-70 [facility] Potassium [Moles/Vol] 3.9 mmol/L 3.5-5.1 [facility] Protein [Mass/Vol] 7.8 g/dL 6.4-8.2 [facility] Sodium [Moles/Vol] 132 mmol/L 136-145 [facility] WBC (Bld) [#/Vol] 8.6 10*3/uL 4.4-11.0 [facility] Blood erythrocytes count (nu mber/volume)Ordered By: Genia Fraire on 10-29-2022 RBC (Bld) [#/Vol] 5.02 10*6/uL 4.2-5.4 [facility] Blood hemoglobin measurement (mass/volume)Ordered By: Genia Fraire on 10-29-2022 Hemoglobin (Bld) [Mass/Vol] 14.4 g/dL 12.0-15.0 [facility] Blood lymphocytes/100 leukoc ytesOrdered By: Genia Fraire on 10-29-2022 Lymphocytes/100 WBC (Bld) 12.3 % 19-41 [facility] Blood monocytes/100 leukocyt esOrdered By: Genia Fraire on 10-29-2022 Monocytes/100 WBC (Bld) 5.0 % 0-10 [facility] Blood platelet mean volumeOr dered By: Genia Fraire on 10-29-2022 Platelet mean volume (Bld) [Entitic vol] 9.8 fL 6.2-12.0 [facility] Determination of erythrocyte mean corpuscular volume (MCV)Ordered By: Genia Fraire on 10-29-2022 MCV (RBC) [Entitic vol] 85.1 fL 81-99 [facility] Hematocrit Auto (Bld) [Volum e fraction]Ordered By: Genia Fraire on 10-29-2022 Hematocrit (Bld) [Volume fraction] 42.7 % 37-47 [facility] - Chemistry and C hemistry - challengeOrdered By: Geniakamari Fraire on 10-29-2022 ALP [Catalytic activity/Vol] 65 U/L 45-117 [facility] ALT [Catalytic activity/Vol] 27 U/L 13-56 [facility] CO2 [Moles/Vol] 25.0 mmol/L 21.0-32.0 [facility] Cobalamin (Vitamin B12) [Mass/Vol] 197 pg/mL 211-911 [facility] Globulin (S) [Mass/Vol] 3.8 g/dL 2.2-4.2 [facility] Magnesium [Mass/Vol] 2.3 mg/dL 1.6-2.6 [facility] Urea nitrogen/Creatinine [Mass ratio] 6.3 mg/mg 10-20 [facility] - Hematology and Cell countsOrdered By: Geniakamari Fraire on 10-29-2022 Erythrocyte distribution width (RBC) [Entitic vol] 36.1 fL 35.1-43.9 [facility] Erythrocyte distribution width (RBC) [Ratio] 11.7 % 11.6-14.6 [facility] Immature granulocytes/100 WBC (Bld) 0.200 % 0.0-0.9 [facility] Comment on above: IG% - Immature Granu locytes (promyelocytes, myelocytes and metamyelocytes) > 1% indicates that a LEFT SHIFT is Present. MCH (RBC) [Entitic mass] 28.7 pg 27.0-32.0 [facility] Nucleated RBC/100 WBC (Bld) [Ratio] 0 % 0-5 [facility] MCHC Auto (RBC) [Mass/Vol]Or dered By: Genia Fraire on 10-29-2022 MCHC (RBC) [Mass/Vol] 33.7 g/dL 32-36 [facility] No Panel InformationOrdered By: Genia Fraire on 10-29-2022 Estimated GFR (MDRD) Amer 93 mL/min >60 [facility] Comment on above: GFR Calc Estimated GFR (MDRD) Non-Af Amer 77 mL/min >60 [facility] Comment on above: Non- GFR Calc Vitamin D 25-Hydroxy 24.2 ng/mL [facility] Comment on above: Vitamin D 25(OH) Sta tus Range Deficiency <20 ng/mL (50nmol/L) Insufficiency 20 - 30 ng/mL (50 - 75 nmol/L) Sufficiency 30 - 100 ng/mL (75 - 250 nmol/L) Toxicity >100 ng/mL (>250 nmol/L) Platelets bldOrdered By: Desmond Fraire on 10-29-2022 Platelets (Bld) [#/Vol] 414 10*3/uL 150-450 [facility] Serum or plasma albumin rufino urement (mass/volume)Ordered By: Genia Fraire on 10-29-2022 Albumin [Mass/Vol] 4.0 g/dL 3.2-5.0 [facility] Serum or plasma albumin/glob ulin mass ratioOrdered By: Genia Fraire on 10-29-2022 Albumin/Globulin [Mass ratio] 1.1 {ratio} 0.9-2.4 [facility] Serum or plasma calcium rufino urement (mass/volume)Ordered By: Genia Fraire on 10-29-2022 Calcium [Mass/Vol] 9.1 mg/dL 8.5-10.1 [facility] Serum or plasma creatinine m easurement (mass/volume)Ordered By: Genia Fraire on 10-29-2022 Creatinine [Mass/Vol] 0.80 mg/dL 0.55-1.02 [facility] Comment on above: The validity of the calculated GFR & GFRAA in patients over 70 years has not been determined. Clinical correlation is essential. Serum or plasma urea nitroge n measurement (mass/volume)Ordered By: Genia Fraire on 10-29-2022 Urea nitrogen [Mass/Vol] 5 mg/dL 7-18 [facility] Thin prep Papanicolaou smear with manual screeningOrdered By: Genia Fraire on 10-29-2022 Thin prep Papanicolaou smear with manual screening 23 U/L 15-37 [facility] Thin prep Papanicolaou smear with manual screening 8 5-15 [facility] Absolute lymphocyte countOrd ered By: Loyd Persaud on 10-25-2022 Lymphocytes Auto (Unsp spec) [#/Vol] 1.53 10*3/uL 0.83-4.51 [facility] Basophil percentageOrdered B y: Loyd Persaud on 10-25-2022 Basophils/100 WBC (Bld) 0.7 % 0-1 [facility] Chloride [Moles/Vol] 99 mmol/L 98-107 [facility] Eosinophils/100 WBC (Bld) 5.5 % 0-5 [facility] Glucose [Mass/Vol] 109 mg/dL 74-106 [facility] Comment on above: Fasting Glucose resu lt from 100 to 125 mg/dL suggests IMPAIRED HOMEOSTASIS per A.D.A. criteria. Neutrophils (Bld) [#/Vol] 7.8 10*3/uL 2.0-7.7 [facility] Neutrophils/100 WBC (Bld) 72.8 % 47-70 [facility] Potassium [Moles/Vol] 3.6 mmol/L 3.5-5.1 [facility] Sodium [Moles/Vol] 135 mmol/L 136-145 [facility] WBC (Bld) [#/Vol] 10.7 10*3/uL 4.4-11.0 [facility] Blood erythrocytes count (nu mber/volume)Ordered By: Loyd Persaud on 10-25-2022 RBC (Bld) [#/Vol] 4.90 10*6/uL 4.2-5.4 [facility] Blood hemoglobin measurement (mass/volume)Ordered By: Loyd Persaud on 10-25-2022 Hemoglobin (Bld) [Mass/Vol] 13.9 g/dL 12.0-15.0 [facility] Blood lymphocytes/100 leukoc ytesOrdered By: Loyd Persaud on 10-25-2022 Lymphocytes/100 WBC (Bld) 14.3 % 19-41 [facility] Blood monocytes/100 leukocyt esOrdered By: Loydhu Silvao on 10-25-2022 Monocytes/100 WBC (Bld) 6.4 % 0-10 [facility] Blood platelet mean volumeOr dered By: Loydhu Silvao on 10-25-2022 Platelet mean volume (Bld) [Entitic vol] 10.1 fL 6.2-12.0 [facility] Determination of erythrocyte mean corpuscular volume (MCV)Ordered By: Loydhu Persaud on 10-25-2022 MCV (RBC) [Entitic vol] 84.9 fL 81-99 [facility] Hematocrit Auto (Bld) [Volum e fraction]Ordered By: Loydhu Persaud on 10-25-2022 Hematocrit (Bld) [Volume fraction] 41.6 % 37-47 [facility] Laboratory - Chemistry and C hemistry - challengeOrdered By: [facility] 10-[facility]-2022 CO2 [Moles/Vol] 28.0 mmol/L 21.0-32.0 [facility] Urea nitrogen/Creatinine [Mass ratio] 8.3 mg/mg 10-20 [facility] Laboratory - Hematology and Cell countsOrdered By: Loyd Persaud on 10-25-2022 Erythrocyte distribution width (RBC) [Entitic vol] 36.4 fL 35.1-43.9 [facility] Erythrocyte distribution width (RBC) [Ratio] 11.9 % 11.6-14.6 [facility] Immature granulocytes/100 WBC (Bld) 0.300 % 0.0-0.9 [facility] Comment on above: IG% - Immature Granu locytes (promyelocytes, myelocytes and metamyelocytes) > 1% indicates that a LEFT SHIFT is Present. MCH (RBC) [Entitic mass] 28.4 pg 27.0-32.0 [facility] Nucleated RBC/100 WBC (Bld) [Ratio] 0 % 0-5 [facility] MCHC Auto (RBC) [Mass/Vol]Or dered By: Loydhu Persaud on 10-25-2022 MCHC (RBC) [Mass/Vol] 33.4 g/dL 32-36 [facility] No Panel InformationOrdered By: Loyd Persaud on 10-25-2022 Estimated Creatinine Clearance Calc 56.71 ml/min [facility] Estimated GFR (MDRD) Amer 88 mL/min >60 [facility] Comment on above: GFR Calc Estimated GFR (MDRD) Non-Af Amer 73 mL/min >60 [facility] Comment on above: Non- GFR Calc Troponin I High Sensitivity 3 pg/mL 3.0-54.0 [facility] Comment on above: Please Note: New Saige t Units and Gender Specific Reference Ranges. For more information see Policy Stat Procedure [place] High Sensitivity Troponin (TNIH) and attachments. Platelets bldOrdered By: Loyd Persaud on 10-25-2022 Platelets (Bld) [#/Vol] 411 10*3/uL 150-450 [facility] Serum or plasma calcium rufino urement (mass/volume)Ordered By: Loyd Persaud on 10-25-2022 Calcium [Mass/Vol] 9.4 mg/dL 8.5-10.1 [facility] Serum or plasma creatinine m easurement (mass/volume)Ordered By: Loyd Persaud on 10-25-2022 Creatinine [Mass/Vol] 0.84 mg/dL 0.55-1.02 [facility] Comment on above: The validity of the calculated GFR & GFRAA in patients over 70 years has not been determined. Clinical correlation is essential. Serum or plasma urea nitroge n measurement (mass/volume)Ordered By: Loyd Persaud on 10-25-2022 Urea nitrogen [Mass/Vol] 7 mg/dL 7-18 [facility] Thin prep Papanicolaou smear with manual screeningOrdered By: [facility] 10-[facility]22 Thin prep Papanicolaou smear with manual screening 8 5-15 [facility] 2018 Novel Coronavirus (COVI D-19), CRUZ ([id number])Ordered By: Smoke Control Supervisor on 03-23-20202018 Novel Coronavirus (COVID-19), CRUZ ([id number]) Not Detected Normal [facility]; [facility] Work Phone: Comment on above: This nucleic acid am plification test was developed and its performancecharacteristics determined by [employer]. Nucleic acidamplification tests include PCR and TMA. This test has not been FDAcleared or approved. This test has been authorized by FDA under anEmergency Use Authorization (EUA). This test is only authorized forthe duration of time the declaration that circumstances existjustifying the authorization of the emergency use of in vitrodiagnostic tests for detection of SARS-CoV-2 virus and/or diagnosisof COVID-19 infection under section 564(b)(1) of the Act, 21 U.S.C.360bbb-3(b) (1), unless the authorization is terminated or revokedsooner.When diagnostic testing is negative, the possibility of a falsenegative result should be considered in the context of a patient'srecent exposures and the presence of clinical signs and symptomsconsistent with COVID-19. An individual without symptoms of COVID-19and who is not shedding SARS-CoV-2 virus would expect to have anegative (not detected) result in this assay. PATIENT NOT FASTINGP ERFORMED BY: [employer] [facility] [id number] [employer] [id number] Vital Signs Date Time Vital Sign Value Performing Clinician Tasha blair 10-25-2022 22:42-0400 Heart rate 88 /min [facility] 10-25-2022 22:42-0400 Respiratory rate 17 /min [facility] 10-25-2022 22:42-0400 SaO2% (BldA) [Mass fraction] 100 % [facility] 10-25-2022 20:36-0400 Body height 160.02 cm [facility] 10-25-2022 20:36-0400 Body mass index (BMI) [Ratio] 21.9 kg/m2 [facility] 10-25-2022 20:36-0400 Body temperature 97.3 [degF] [facility] 10-25-2022 20:36-0400 Body weight 56.29 kg [facility] 10-25-2022 20:36-0400 Diastolic blood pressure 99 mm[Hg] [facility] 10-25-2022 20:36-0400 Systolic blood pressure 148 mm[Hg] [facility] Encounters Encounter Date Encounter Type Care Provider Facility Start: 11-23-2023 Encounter for genera l adult medical examination with abnormal findings [facility] Start: 11-21-2023 End: 11-21-2023 ambulatory [facility] Facility:[facility] Start: 10-29-2023 End: 10-29-2023 ambulatory [facility] Facility:[facility] Start: 10-29-2022 End: 10-29-[facility] Work [facility] Start: 10-29-2022 End: 10-29-2022 Patient encounter procedure [facility] Start: 10-25-2022 End: 10-25-2022 Emergency department patient visit [facility] Work Phone: Start: 03-23-2020 End: 04-17-2020 Office outpatient visit 10 minutes Xiomara [facility] Procedures Date Procedure Procedure Detail Performing Clinician Start: 10-29-2022 X-ray of cervical spine Plan of Treatment Date Care Activity Detail Author Patient Education ED Anxiety Reaction [facility] Work Phone: Patient referral [facility] Work Phone: Payers Date Payer Category Payer Self-pay [id number] 2023 Unknown [id number] Unknown [place] Unknown [id number] Unknown [id number] Social History Date Type Detail Facility Start: [facility]22 [facility] Start: 1960 Sex Assigned At Female [facility] Mental Status Date Assessment Result Facility 10-25-2022 Cognitive function Level Of Cons ciousness Awake;Alert;Appropriate;Follow s Commands [facility] Work Phone: Discharge summary 10-25-2022 Note Date & Type Note Facility 10-25-2022 Discharge summary Note Date/Time October 25, 2022 9:15pm [facility] Medical Records Department [address] [place] [address] Emergency Department Summary 10/25/22 MR#: [id number] Acct: [id number] Name: JOSHUA HUBBARD Rep #: [id number] : 1960 62 From: Loyd Persaud MD PCP: Dr. Emile Ludwig DO Status:REG ER Location: ED ADDENDUM by Dr. Loyd Persaud MD on 10/25/22 at 2211 EKG is normal with a rate of 87. SD interval is 130 ms. QRS duration 82 ms. QT duration 358 ms. Lamar is normal. 10/25/22 2211<Electronically signed by Loyd Persaud MD> Cosigner Signature (if applicable): cc: Dr. Emile Ludwig DO ~* Signed HPI History of Present Illness Chief Complaint: Other, Pain/Inj Detail of Chief Complaint: Multiple symptoms and concern for cardiac pain Informant: patient Onset/Context/Timing Onset: Today (Episode early this morning that lasted 30 minutes, and see HPI narrative for further detail) Context: Sudden Onset Timing: Intermittent Quality: Discomfort Location: Superior right and left chest and anterior neck Current Severity: Mild Maximum Severity: Moderate Worsened by: Nothing Relieved by: Nothing Associated Symptoms Associated Symptoms: No associated symptoms that are concerning for cardiac. Did complain of nu Narrative Narrative: Patient is a 62-year-old woman who presents with chief complaint of head pain last evening. She took migraine medicine. She took another migraine medicine this morning. Migraine medicine consists of acetaminophen, aspirin and caffeine. She denies double vision, blurred vision loss of vision. Denies ringing in ears or decreased hearing. Denies trouble speech or swallowing. Shedenies chest pain but does complain of bilateral superior anterior chest discomfort located in the area of the clavicle and anterior right and left neck. There is no jaw pain. There is no associated symptoms. The pain does not radiate through to her back. Patient states she thought if she would go out with her sister and have something she would feel better. When she went out she did feel better. She then went home and was lying down when she developed numbness in her left upper extremity lasted 30 minutes. She denied weakness in that arm. She has recurrence of the discomfort in the superior anterior check. Patient does admit to being anxious. Her concern is that this is cardiac since every family never had cardiac problems. She is a non-smoker. She denies history of hypertension, diabetes or hypercholesterolemia. Prior similar symptoms: No Recent Illness/Hospitalization: No PFSH PFSH Medical History Abnormal Pap smear of cervix Anxiety COVID-19 History of cervical cancer Migraines Pneumonia due to 2019 novel coronavirus Post-menopausal Transient global amnesia Home Medications epinephrine 0.3 mg/0.3 mL injection, auto-injector 0.3 mg IM ONCE PRN dsryness 05/09/17 [History Last Taken Unknown] estradiol 0.01% (0.1 mg/gram) vaginal cream (Estrace) See Rx Instructions vaginal .COMPLEX #42.5 grams 12/02/19 [Rx Last Taken Unknown] clorazepate dipotassium 3.75 mg tablet 3.75 mg PO TID PRN anxiety #14 tabs 10/25/22 [Rx Last Taken Unknown] Allergy/AdvReac Type Severity Reaction Status Date / Time amoxicillin Allergy Mild Hives Verified 10/25/22 20:36 monosodium glutamate [msg] Allergy Hives Verified 10/25/22 20:36 bee venom protein (honey bee) AdvReac Severe Anaphylaxis Verified 10/25/22 20:36 lactose AdvReac Intermediate Abd Verified 10/25/22 20:36 cramps/diarrhea Family History Father Heart disease Brother Heart disease Sister Heart disease Surgical History History of conization of cervix Social History household members: spouse housing: house 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 Smoking Status: Never smoker alcohol intake: never substance use type: does not use caffeine: Yes what type of physical activity do you participate in: walking frequency: 1-2 times per week seatbelt use: always do you feel safe at home: Yes additional social history: Sushant MAO ED Constitutional Constitutional ED: Denies chills, fever(s), subjective, sweats or weight loss Eyes Eyes: Denies blurry vision, change in vision or diplopia ENT ENT ED: Reports other Details: Denies decreased hearing or tinnitus ; Denies ear pain, rhinorrhea or sore throat Cardiovascular Cardiovascular: Reports chest pain; Denies orthopnea, palpitations, paroxysmal nocturnal dyspnea or racing heartbeat Respiratory/Chest Respiratory/Chest: Denies cough, dyspnea, dyspnea on exertion, orthopnea or paroxysmal nocturnal dyspnea Gastrointestinal Gastrointestinal: Denies abdominal pain, constipation, diarrhea, melena, nausea or vomiting Genitourinary Genitourinary ED: Denies dysuria, hematuria or urinary frequency Musculoskeletal Musculoskeletal: Denies arthralgias, back pain, myalgias or neck pain Integumentary Denies abscess Neurologic Neurologic: Reports headache(s) and paresthesias; Denies weakness Psychiatric Psychiatric: Reports anxiety; Denies depression Endocrine Endocrinology: Denies cold intolerance or heat intolerance Hematologic/Lymphatic Hematologic/Lymphatic: Reports systems reviewed and no addt'l complaints, except as documented EXAM Physical Exam Const Vital Signs: 10/25/22 20:36 10/25/22 21:22 Temperature 97.3 F L Temperature Source Temporal Pulse Rate 88 Respiratory Rate 16 Respiratory Effort Normal Respiratory Pattern Normal Blood Pressure 148/99 H Blood Pressure Mean 115 Pulse Ox 98 Positive well nourished and well developed Constitutional Narrative: Patient appears anxious. She justifies her answers. General Appearance ED: well developed and NAD; Negative for cyanotic, diaphoretic or pallor HEENT Reports moist mucous membranes Eyes PERRL and EOMs intact bilaterally General Eye ED: Negative for pale conjunctiva or scleral icterus Neck no lymphadenopathy, supple and no JVD Chest Wall inspection of chest normal and palpation of chest normal Resp normal respiratory effort and clear to auscultation bilaterally Cardio regular rate, regular rhythm, S1 normal heart sound, S2 normal heart sound and no murmurs GI normal to inspection, nondistended, normoactive bowel sounds, non-tender, non-distended and no masses; Negative for hepatosplenomegaly GI Narrative: There is no palpable pulsatile mass. There is no abdominal bruit Auscultation: normoactive bowel sounds Palpation: soft Back/Spine no CVA tenderness Cervical Spine: Negative for cervical spine tenderness Thoracic Spine / Upper Back: Negative for thoracic spinal tenderness Lumbar Spine / Lower Back: Negative for lumbar spinal tenderness Extremity normal to inspection Extremity Narrative: Axillary, median, radial and ulnar function intact. Radial elbow. General Extremety ED: Negative for edema or tenderness General Extremity: Negative for edema Neuro oriented x3, CN's II-XII intact bilaterally and no sensory deficits noted Sensorium / Orientation: alert Psych Mood & Affect: anxious Skin no wounds and skin turgor normal General Skin Exam: elasticity normal; Negative for jaundice or pallor MDM MDM MDM Narrative Medical decision making narrative: With multiple symptoms. This may represent anxiety. This may represent atypical cardiac presentation. Will obtain CBC to assess white count and and differential. Also to evaluate for anemia. Clinically she is not anemic. BMP was obtained to assess renal function. Troponin was obtained. Only 1 troponin was ordered since she had pain greater than 12 hours ago. EKG was obtained as well because she is having this atypical pain to see if there is any evidence of acute ischemia. With a normal EKG and normal troponin patient was informed this is not her heart. She does feel much better after Ativan. Suspect this was an anxiety reaction. Lab Data Attestation: I reviewed the patient's lab results. Lab results narrative: CBC is normal. BMP is normal. Troponin is less than 4. Labs: Laboratory Results - last 24 hr 10/25/22 21:15 WBC 10.7 RBC 4.90 Hgb 13.9 Hct 41.6 MCV 84.9 MCH 28.4 MCHC 33.4 RDW Std Deviation 36.4 RDW Coeff of Trevor 11.9 Plt Count 411 MPV 10.1 Immature Gran % (Auto) 0.300 Neut % (Auto) 72.8 H Lymph % (Auto) 14.3 L [place] % (Auto) 6.4 Eos % (Auto) 5.5 H Baso % (Auto) 0.7 Absolute Neuts (auto) 7.8 H Absolute Lymphs (auto) 1.53 Nucleated RBC % 0 Sodium 135 L Potassium 3.6 Chloride 99 Carbon Dioxide 28.0 Anion Gap 8 BUN 7 Creatinine 0.84 Estim Creat Clear Calc 56.71 Est GFR (MDRD) Af Amer 88 Est GFR (MDRD) Non-Af 73 BUN/Creatinine Ratio 8.3 L Glucose 109 H Calcium 9.4 Troponin I High Sens 3 Discharge Plan Triage Chief Complaint: Other, Pain/Inj ED Provider: Loyd Persaud Dx/Rx/DC Orders Clinical Impression: Anterior neck pain, Atypical chest pain, Paresthesia of left upper extremity, Anxiety reaction Instructions: ED Anxiety Reaction Prescriptions: New clorazepate dipotassium 3.75 mg tablet 3.75 mg PO TID PRN (Reason: anxiety) Qty: 14 0RF No Action epinephrine 0.3 mg/0.3 mL auto-injector 0.3 mg IM ONCE PRN (Reason: dsryness) estradiol [Estrace] 0.01 % (0.1 mg/gram) cream See Rx Instructions vaginal .COMPLEX Qty: 42.5 2RF Rx Instructions: pea sized amount VAGINAL every other day X 4 weeks then twice a week; Primary Care Provider: Emile Ludwig Referrals: Emile Ludwig [[facility]] - Disposition Disposition: Home, Self Care What to do if you have Problems For any increased pain, shortness of breath, bleeding, nausea or vomiting, chestpain, or any unexpected problems, contact your Primary Care Provider. Call [facility] ([phone]) or report to the closest Emergency Room. Call 911 if necessary. 10/25/222210 <Electronically signed by Loyd Persaud MD> Cosigner Signature (if applicable): CC: Dr. Emile Ludwig DO ~ Signed [facility] Work Phone: Evaluation note Note Date & Type Note Facility Evaluation note No assessment information availa ble [facility] Work Phone: Chief Complaint and Reason for Visit Chief Complaint LEFT SHOULDER/NECK P AIN, ARM TINGLING Family History No Family History Records Found Relationship Condition Age at Onset Recorded Date/T manuel father Cardiac disease Unknown brother Cardiac disease Unknown sister Cardiac disease Unknown Advance Directives No Advanced Directives Records Found Advance Directive Response Recorded Date/ Time Living Will Yes October 25, 2022 9:21pm Power of Door Maker Yes October 25 9:21pm Name of Medical Power of Door Maker gabriella daniel husb and October 25, 2022 9:21pm Summary Purpose Additional Source Comments Care Teams (unrecognized sec tion and content) Team Status: Active Member Role Status Dates Dr. Dylan Oliveira MD Family Provider Active Dr. Emile Ludwig DO Primary Care Provider Active Team Status: Inactive Member Role Status Dates Dr. Loyd Persaud MD Emergency Provider Active Dr. Emile Ludwig DO Primary Care Provider Active Team Status: Active Member Role Status Dates Dr. Dylan Oliveira MD Family Provider Active TUSHAR Mendez Primary Care Provider Active Team Status: Inactive Member Role Status Dates Dr. Loyd Persaud MD Attending Provider, Emergency Provi vince Active Dr. Emile Ludwig , DO Primary Care Provider Active Team Status: Inactive Member Role Status Dates Genia Fraire NP-Jhonatan Primary Care Provide r, Attending Provider, Referring Provider Active Goals (unrecognized section and content) Goals may be documented in a n alternate sectionGoals may be documented in an alternate section INFORMATION SOURCE (unrecogn ized section and content) DATE CREATED AUTHOR 12/01/2023 [facility] FOR RECORDS PERTAINING TO PATIENTS WHO ARE OR HAVE BEEN ENROLLED IN A CHEMICAL DEPENDENCY/SUBSTANCEABUSE PROGRAM, SOME INFORMATION MAY BE OMITTED. This clinical summary was aggregated from multiple sources. Caution should be exercised in using it in the provision of clinical care. This summary normalizes information from multiple sources, and as a consequence, information in this document may materially change the coding, format and clinical context of patient data. In addition, data may be omitted in some cases. CLINICAL DECISIONS SHOULD BE BASED ON THE PRIMARY CLINICAL RECORDS. [facility] [employer] [facility]. provides no warranty or guarantee of the accuracy or completeness of information in this document.
== END | disposition home or self-care (01) ==
LOC: BFHLAB 10:35
PROVIDERS: PCP Nurse Practitioner Family; Visit Provider Nurse Practitioner Family
DX: E78.5 Hyperlipidemia, unspecified (principal); E53.8 Deficiency of other specified B group vitamins; E55.9 Vitamin D deficiency, unspecified; I10 Essential (primary) hypertension
CPT/HCPCS: 36415; 80053; 80061; 82306; 82607; 85025

== ENCOUNTER → 2024-11-23 | Outpatient (CLI) | payer MEDICARE, BC, SELFPAY ==
--- NOTE | 2024-11-23 07:10 | BD_ITS ---
PROCEDURE: DEXA BONE DENSITY STUDY N/A REASON FOR EXAM: F, age 64 y/o . Postmenopausal. TECHNIQUE: DEXA BONE DENSITY STUDY COMPARISON: None FINDINGS: BMD and T-SCORES Lumbar spine: 0.963 g/cm2, T-score -0.8 Levels: L1 through L4 Left femoral neck: 0.792 g/cm2, T-score -1.2 Femoral neck comparison data not recommended for monitoring change. Left total hip: 0.792 g/cm2, T-score -1.2 . Right femoral neck: 0.647 g/cm2, T-score -1.8 Femoral neck comparison data not recommended for monitoring change. Right total hip: 0.769 g/cm2, T-score -1.4 The World Health Organization has defined the following categories based on bone density: Normal bone density: T-score equal to or greater than -1.0 Osteopenia: T-score between -1.0 and -2.5 Osteoporosis: T-score equal to or less than -2.5 FRAX (or Comparable) Fracture Risk Assessment: 10 Year Probability of Fracture: Major Osteoporotic Fracture: 9% Hip Fracture: 1.3% (Note: FRAX is not to be reported in setting of normal range bone density, osteoporosis on DEXA, known history of osteoporosis, prior osteoporotic hip or vertebral fracture, or for any patient undergoing pharmacological treatment for bone loss.) The National Osteoporosis Foundation (NOF) recommends pharmacological treatment for patients with a FRAX 10-year risk of 3% or higher for a hip fracture, or 20% or higher for a major osteoporotic fracture, to prevent osteoporosis and reduce fracture risk. The patient does meet the pharmacological treatment recommendations for prevention of osteoporosis. BD/Dexa Bone Density Study IMPRESSION: OSTEOPENIA. Recommend follow-up as clinically warranted. Reading Location: [facility]
--- NOTE | 2024-11-23 07:10 | BI_ITS ---
EXAM: SCRN MAMM (CAD)W/ANNABEL BILAT DATE: 11/23/2024 CLINICAL HISTORY: F, Age 64 y/o , SCREENING TECHNIQUE: SCRN MAMM (CAD)W/ANNABEL BILAT COMPARISON: Prior exam(s) dated 11/21/2023. FINDINGS: TISSUE DENSITY: The breasts are heterogeneously dense, which may obscure small masses. Bilateral Breast Mammographic Findings: Benign-appearing macrocalcifications and round microcalcifications are seen in the left breast. No suspicious masses, suspicious cluster of microcalcifications, architectural distortion or secondary sign of malignancy is identified in either breast. BI/SCRN MAMM (CAD)W/ANNABEL BILAT IMPRESSION: Stable bilateral screening mammogram. OVERALL FINAL ASSESSMENT BI-RADS 2: BENIGN RECOMMENDATION: Routine annual follow-up in 1 Year A letter with findings and recommendations will be mailed to the patient. Reading Location: [id number]
--- OUTSIDE RECORDS SUMMARY | 2024-11-23 07:11 | XMS RPT_ITS | CCD ---
Author Organization [facility] Care Team Providers Care Jigger Operator Name Role Phone Xiomara Love Unavailable Maricarmen Cook Unavailable Unavailable Juno CASTING MACHINE 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-C, Genia Primary Care Provider [phone] Juno CASTING MACHINE 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-C, Genia Attending Provider Juno, Genia Primary Care Unavailable Juno, Genia Attending Unavailable Juno, Genia Attending Unavailable Juno, Genia Primary Care Unavailable Juno, Genia Referring Unavailable Juno, Genia Primary Care Unavailable Juno, Genia Referring Unavailable Juno, Genia Attending Unavailable Allergies Allergy Classification Reported Allergen(s) Allergy Type Date of Onset Reaction(s) Facility (3 sources) Amoxicillin Drug Allergy 3 [facility] (3 sources) Glutamate Drug Allergy 3 [facility] (3 sources) Lactose Drug Allergy 3 Abd cramps/diarrhea [facility] (3 sources) bee venom protein (honey bee) Propensity to adverse reactions 3 Anaphylaxis [facility] (1 source) Amoxicillin Drug Allergy 3 [facility] (1 source) Lactose Drug Allergy 3 [facility] (1 source) monosodium glutamate Drug allergy (disorder) 3 [facility] (1 source) bee venom protein (honey bee) Drug allergy (disorder) 3 [facility] Medications Current Medications Medication Drug Class(es) Dates Sig (Normalized) Sig (Original) clorazepate dipotassium 3.75 mg oral tablet (3 sources) Benzodiazepine Start: 10-25-2022 take 1 tablet by mouth three times daily as needed for anxiety Clorazepate Dipotassium 3.75 mg tablet Active 3.75 mg PO THREE TIMES A DAY as needed for anxiety 14 0 October 25, 2022 12:00am Anxious reaction Generalized anxiety disorder [id number] 0.3 ml EPINEPHrine 1 mg/ml auto-injector (3 sources) alpha-Adrenergic Agonist, beta-Adrenergic Agonist, Catecholamine Start: 05-09-2017 Epinephrine 0.3 mg/0.3 mL auto-injector Active 0.3 mg IM ONCE as needed for dsryness May 09, 2017 1:00am estradiol 0.1 mg/ml vaginal cream (6 sources) Estrogen Start: 12-02-2019 Estradiol (Estrace) 0.01 % (0.1 mg/gram) cream Active 0 VAGINAL .COMPLEX 42.5 2 December 02, 2019 12:00am pea sized amount VAGINAL every other day X 4 weeks then twice a week; Start: 12-02-2019 Estradiol (Est race) 0.01 % (0.1 mg/gram) cream Active 0 VAGINAL .COMPLEX 42.5 December 02, 2019 12:00am pea sized amount VAGINAL every other day X 4 weeks then twice a week; Start: 05-09-2017 End: 12-02-2019 Estradiol (Estrace) 0.01 % ( 0.1 mg/gram) cream Discontinued 1 g VAGINAL TWICE A WEEK May 09, 2017 1:00am December 02, 2019 1:38pm Completed/Discontinued Medications Medication Drug Class(es) Dates Sig (Normalized) Sig (Original) dexamethasone 6 mg oral tablet (3 sources) Corticosteroid Start: 11-30-2020 End: 02-28-2021 take 1 tablet by mouth once daily Dexamethasone 6 mg tablet Discontinued 6 mg PO DAILY 8 8 0 November 30, 2020 12:00am February 28, 2021 11:50am Problems Active Problems Problem Classification Problem Date Documented Da te Episodic/Chronic Anxiety disorders (3 sources) Anxiety; Translations: [Generalized anxiety disorder] 10-25-2022 Chronic Diseases of white blood cells (3 sources) Neutropenia associated with infectious disease; Translations: [Neutropenia due to infection] 12-04-2020 Chronic Disorders of lipid metabolism (1 source) Hyperlipidemia, unspecified; Translations: [Hyperlipidemia, unspecified] Onset: 11-20-2024 Chronic Immunizations and screening for infectious disease (1 source) Contact with and (suspected) exposure to other viral communicable diseases; Translations: [Exposure to SARS virus] 03-23-2020 Episodic Menopausal disorders (3 sources) Atrophic vaginitis; Translations: [Postmenopausal atrophic vaginitis] 12-02-2019 Chronic Nonspecific chest pain (3 sources) Atypical chest pain; Translations: [Other chest pain] 10-25-2022 Episodic Other nervous system disorders (3 sources) Paresthesia of left upper limb; Translations: [Paresthesia of skin] 10-25-2022 Episodic Other screening for suspected conditions (not mental disorders or infectious disease) (1 source) Encounter for screening mammogram for malignant neoplasm of breast; Translations: [Encounter for screening mammogram for malignant neoplasm of breast] Onset: 11-17-2024 Episodic Residual codes; unclassified (1 source) Asymptomatic menopausal state; Translations: [Asymptomatic menopausal state] Onset: 11-17-2024 Episodic Spondylosis; intervertebral disc disorders; other back problems (3 sources) Neck pain; Translations: [Cervicalgia] 10-25-2022 Episodic Viral infection (6 sources) COVID-19; Translations: [Pneumonia due to 2019 novel coronavirus] 02-28-2021 Episodic Past or Other Problems Problem Classification Problem Date Documented Da te Episodic/Chronic Unclassified (1 source) Unclassified (1 source) Exposure to SARS virus Results Test Name Value Interpretation Reference Range Facility Absolute lymphocyte countOrd ered By: Genia Fraire on 10-30-2024 Lymphocytes Auto (Unsp spec) [#/Vol] 1.13 10*3/uL 0.83-4.51 [facility] Absolute neutrophil countOrd ered By: Genia Fraire on 10-30-2024 Neutrophils (Bld) [#/Vol] 3.5 10*3/uL 2.0-7.7 [facility] Anion gap in Serum or Plasma Ordered By: Genia Fraire on 10-30-2024 Anion gap [Moles/Vol] 16 mmol/L High 5-15 [facility] Automated lymphocyte count a s percentage of total leukocytesOrdered By: Genia Fraire on 10-30-2024 Lymphocytes/100 WBC Auto (Unsp spec) 22.0 % 19-41 [facility] BUN/creatinine ratioOrdered By: Genia Fraire on 10-30-2024 Urea nitrogen/Creatinine [Mass ratio] 10.6 mg/mg 10-20 [facility] Basophil percentageOrdered B y: Genia Fraire on 10-30-2024 Basophils/100 WBC (Bld) 1.0 % 0-1 [facility] Bilirubin, totalOrdered By: Genia Fraire on 10-30-2024 Bilirubin [Mass/Vol] 0.47 mg/dL 0.00-1.30 [facility] CBC W/Diff, Automatedon Absolute Lymph 1.13 X10 3/uL Normal 0.83-4.51 [facility] Comment on above: Performed By: #### L 500.4050, L503.0106, L506.1001, L100.0100, L500.4100 #### [facility] [address] [place], [address] Absolute Neut 3.5 X10 3/uL Normal 2.0-7.7 [facility] Comment on above: Performed By: #### L 500.4050, L503.0106, L506.1001, L100.0100, L500.4100 #### [facility] [address] [place], [address] Basophils/100 WBC (Bld) 1.0 % Normal 0-1 [facility] Comment on above: Performed By: #### L 500.4050, L503.0106, L506.1001, L100.0100, L500.4100 #### [facility] [address] [place], [address] Eosinophils/100 WBC (Bld) 2.9 % Normal 0-5 [facility] Comment on above: Performed By: #### L 500.4050, L503.0106, L506.1001, L100.0100, L500.4100 #### [facility] [address] [place], [address] Erythrocyte distribution width (RBC) [Ratio] 11.6 % Normal 11.6-14.6 [facility] Comment on above: Performed By: #### L 500.4050, L503.0106, L506.1001, L100.0100, L500.4100 #### [facility] [address] [place], [address] Hematocrit (Bld) [Volume fraction] 41.7 % Normal 37-47 [facility] Comment on above: Performed By: #### L 500.4050, L503.0106, L506.1001, L100.0100, L500.4100 #### [facility] [address] [place], [address] Hemoglobin (Bld) [Mass/Vol] 14.4 g/dL Normal 12.0-15.0 [facility] Comment on above: Performed By: #### L 500.4050, L503.0106, L506.1001, L100.0100, L500.4100 #### [facility] [address] [place], [address] IG% 0.200 Normal 0.0-0.9 [facility] Comment on above: Result Comment: IG% - Immature Granulocytes (promyelocytes, myelocytes and metamyelocytes) > 1% indicates that a LEFT SHIFT is Present. Performed By: #### L 500.4050, L503.0106, L506.1001, L100.0100, L500.4100 #### [facility] [address] [place], [address] Lymphocytes/100 WBC (Bld) 22.0 % Normal 19-41 [facility] Comment on above: Performed By: #### L 500.4050, L503.0106, L506.1001, L100.0100, L500.4100 #### [facility] [address] [place], [address] MCH (RBC) [Entitic mass] 29.3 pg Normal 27.0-32.0 [facility] Comment on above: Performed By: #### L 500.4050, L503.0106, L506.1001, L100.0100, L500.4100 #### [facility] [address] [place], [address] MCHC (RBC) [Mass/Vol] 34.5 g/dL Normal 32-36 [facility] Comment on above: Performed By: #### L 500.4050, L503.0106, L506.1001, L100.0100, L500.4100 #### [facility] [address] [place], [address] MCV (RBC) [Entitic vol] 84.8 fL Normal 81-99 [facility] Comment on above: Performed By: #### L 500.4050, L503.0106, L506.1001, L100.0100, L500.4100 #### [facility] [address] [place], [address] Monocytes/100 WBC (Bld) 6.2 % Normal 0-10 [facility] Comment on above: Performed By: #### L 500.4050, L503.0106, L506.1001, L100.0100, L500.4100 #### [facility] [address] [place], [address] Neutrophils/100 WBC (Bld) 67.7 % Normal 47-70 [facility] Comment on above: Performed By: #### L 500.4050, L503.0106, L506.1001, L100.0100, L500.4100 #### [facility] [address] [place], [address] Nucleated RBC (Bld) [#/Vol] 0 10*3/uL Normal 0-5 [facility] Comment on above: Performed By: #### L 500.4050, L503.0106, L506.1001, L100.0100, L500.4100 #### [facility] [address] [place], [address] Platelet mean volume (Bld) [Entitic vol] 9.8 fL Normal 6.2-12.0 [facility] Comment on above: Performed By: #### L 500.4050, L503.0106, L506.1001, L100.0100, L500.4100 #### [facility] [address] [place], [address] Platelets (Bld) [#/Vol] 404 10*3/uL Normal 150-450 [facility] Comment on above: Performed By: #### L 500.4050, L503.0106, L506.1001, L100.0100, L500.4100 #### [facility] [address] [place], [address] RBC (Bld) [#/Vol] 4.92 10*6/uL Normal 4.2-5.4 [facility] Comment on above: Performed By: #### L 500.4050, L503.0106, L506.1001, L100.0100, L500.4100 #### [facility] [address] [place], [address] RDW SD 35.3 fl Normal 35.1-43.9 [facility] Comment on above: Performed By: #### L 500.4050, L503.0106, L506.1001, L100.0100, L500.4100 #### [facility] [address] [place], [address] WBC (Bld) [#/Vol] 5.1 10*3/uL Normal 4.4-11.0 [facility] Comment on above: Performed By: #### L 500.4050, L503.0106, L506.1001, L100.0100, L500.4100 #### [facility] [address] [place], [address] Calculated very low density lipoprotein (VLDL) cholesterol measurementOrdered By: Genia Fraire on 10-30-2024 Calculated very low density lipoprotein (VLDL) cholesterol measurement 18 mg/dL 5-40 [facility] Carbon dioxide, total [Moles /volume] in Central venous bloodOrdered By: Genia Fraire on 10-30-2024 CO2 [Moles/Vol] 20.4 mmol/L Low 21.0-32.0 [facility] Chloride assayOrdered By: Ra rishabh Fraire on 10-30-2024 Chloride [Moles/Vol] 100 mmol/L 98-108 [facility] Comprehensive Metabolic Prof ilon 10-30-2024 Albumin [Mass/Vol] 4.4 g/dL Normal 3.4-4.8 [facility] Comment on above: Performed By: #### L 500.4050, L503.0106, L506.1001, L100.0100, L500.4100 #### [facility] [address] [place], [address] Albumin/Globulin [Mass ratio] 1.4 {ratio} Normal 0.9-2.4 [facility] Comment on above: Performed By: #### L 500.4050, L503.0106, L506.1001, L100.0100, L500.4100 #### [facility] [address] [place], [address] ALK PHOS 58 U/L Normal 35-104 [facility] Comment on above: Performed By: #### L 500.4050, L503.0106, L506.1001, L100.0100, L500.4100 #### [facility] [address] [place], [address] ALT [Catalytic activity/Vol] 19 U/L Normal <=34 [facility] Comment on above: Performed By: #### L 500.4050, L503.0106, L506.1001, L100.0100, L500.4100 #### [facility] [address] [place], [address] AST [Catalytic activity/Vol] 22 U/L Normal <=31 [facility] Comment on above: Performed By: #### L 500.4050, L503.0106, L506.1001, L100.0100, L500.4100 #### [facility] [address] [place], [address] Bilirubin [Mass/Vol] 0.47 mg/dL Normal 0.00-1.30 [facility] Comment on above: Performed By: #### L 500.4050, L503.0106, L506.1001, L100.0100, L500.4100 #### [facility] [address] [place], [address] BUN/CRE 10.6 RATIO Normal 10-20 [facility] Comment on above: Performed By: #### L 500.4050, L503.0106, L506.1001, L100.0100, L500.4100 #### [facility] [address] [place], [address] Calcium [Mass/Vol] 9.8 mg/dL Normal 7.6-11.0 [facility] Comment on above: Performed By: #### L 500.4050, L503.0106, L506.1001, L100.0100, L500.4100 #### [facility] [address] [place], [address] Chloride [Moles/Vol] 100 mmol/L Normal 98-108 [facility] Comment on above: Performed By: #### L 500.4050, L503.0106, L506.1001, L100.0100, L500.4100 #### [facility] [address] [place], [address] CO2 [Moles/Vol] 20.4 mmol/L Low 21.0-32.0 [facility] Comment on above: Performed By: #### L 500.4050, L503.0106, L506.1001, L100.0100, L500.4100 #### [facility] [address] [place], [address] Creatinine [Mass/Vol] 0.76 mg/dL Normal 0.70-1.20 [facility] Comment on above: Performed By: #### L 500.4050, L503.0106, L506.1001, L100.0100, L500.4100 #### [facility] [address] [place], [address] GAP 16 High 5-15 [facility] Comment on above: Performed By: #### L 500.4050, L503.0106, L506.1001, L100.0100, L500.4100 #### [facility] [address] [place], [address] GFR/1.73 sq M.predicted among non-blacks MDRD (S/P/Bld) [Vol rate/Area] 87 mL/min/{1.73_m2} Normal >60 [facility] Comment on above: Result Comment: mL/m in/1.73m2 CKD-EPI Creatinine Equation (2020) Performed By: #### L 500.4050, L503.0106, L506.1001, L100.0100, L500.4100 #### [facility] [address] [place], [address] Globulin (S) [Mass/Vol] 3.1 g/dL Normal 2.2-4.2 [facility] Comment on above: Performed By: #### L 500.4050, L503.0106, L506.1001, L100.0100, L500.4100 #### [facility] [address] [place], [address] Glucose [Mass/Vol] 91 mg/dL Normal 70-99 [facility] Comment on above: Performed By: #### L 500.4050, L503.0106, L506.1001, L100.0100, L500.4100 #### [facility] [address] [place], [address] Potassium [Moles/Vol] 4.3 mmol/L Normal 3.3-5.1 [facility] Comment on above: Performed By: #### L 500.4050, L503.0106, L506.1001, L100.0100, L500.4100 #### [facility] [address] [place], [address] Sodium [Moles/Vol] 135 mmol/L Normal 133-145 [facility] Comment on above: Performed By: #### L 500.4050, L503.0106, L506.1001, L100.0100, L500.4100 #### [facility] [address] [place], [address] T PROT 7.5 g/dL Normal 5.9-8.4 [facility] Comment on above: Performed By: #### L 500.4050, L503.0106, L506.1001, L100.0100, L500.4100 #### [facility] [address] [place], [address] Urea nitrogen [Mass/Vol] 8 mg/dL Normal 4-19 [facility] Comment on above: Performed By: #### L 500.4050, L503.0106, L506.1001, L100.0100, L500.4100 #### [facility] [address] [place], [address] Eosinophil percentageOrdered By: Genia Fraire on 10-30-2024 Eosinophils/100 WBC (Bld) 2.9 % 0-5 [facility] Erythrocyte distribution wid th ratioOrdered By: Genia Fraire on 10-30-2024 Erythrocyte distribution width (RBC) [Ratio] 11.6 % 11.6-14.6 [facility] Erythrocyte distribution wid th standard deviationOrdered By: Genia Fraire on 10-30-2024 Erythrocyte distribution width (RBC) [Ratio] 35.3 fl 35.1-43.9 [facility] Glomerular filtration rate ( GFR) estimation/1.73 sq m using serum, plasma, or whole bOrdered By: Genia Fraire on 10-30-2024 GFR/1.73 sq M.predicted among non-blacks MDRD (S/P/Bld) [Vol rate/Area] 87 mL/min/{1.73_m2} >60 [facility] Comment on above: mL/min/1.73m2 CKD-EP I Creatinine Equation (2020) Hematocrit Auto (Bld) [Volum e fraction]Ordered By: Genia Fraire on 10-30-2024 Hematocrit (Bld) [Volume fraction] 41.7 % 37-47 [facility] Hemoglobin measurementOrdere d By: Genia Fraire on 10-30-2024 Hemoglobin (Bld) [Mass/Vol] 14.4 g/dL 12.0-15.0 [facility] Immature granulocytes/100 WB C Auto (Bld)Ordered By: Genia Fraire on 10-30-2024 Immature granulocytes/100 WBC (Bld) 0.200 % 0.0-0.9 [facility] Comment on above: IG% - Immature Granu locytes (promyelocytes, myelocytes and metamyelocytes) > 1% indicates that a LEFT SHIFT is Present. LDL calc ser/plasOrdered By: Genia Fraire on 10-30-2024 Cholesterol in LDL [Mass/Vol] 106 mg/dL [facility] Comment on above: Jnvhpbymak=711-673 m g/dL & Higher Crol=974 mg/dL or greaterFriedwald Equation for LDL-C Laboratory - Chemistry and C hemistry - challengeOrdered By: Genia Fraire on 10-30-2024 AST [Catalytic activity/Vol] 22 U/L <32 [facility] Lipid Profileon 10-30-2024 CHOL:HDL 2.54 Normal [facility] Comment on above: Performed By: #### L 500.4050, L503.0106, L506.1001, L100.0100, L500.4100 #### [facility] [address] [place], [address] Cholesterol [Mass/Vol] 204 mg/dL High <=200 [facility] Comment on above: Result Comment: Chol esterol level, Desirable <200 mg/dL Borderline high cholesterol 200-239 mg/dL High cholesterol >=240 mg/dL Recommendations of the NCEP Adult Treatment Panel for the following risk-cutoff thresholds for the [place] population. Performed By: #### L 500.4050, L503.0106, L506.1001, L100.0100, L500.4100 #### [facility] [address] [place], [address] Cholesterol in HDL [Mass/Vol] 80 mg/dL Normal [facility] Comment on above: Result Comment: Jane onal Cholesterol Education Program (NCEP) guidelines: <40 mg/dL: Low HDL-cholesterol (major risk factor for CHD) >= 60 mg/dL: High HDL-cholesterol (negative risk factor for CHD) HDL-cholesterol is affected by a number of factors, e.g. smoking, exercise, hormones, sex and age. Performed By: #### L 500.4050, L503.0106, L506.1001, L100.0100, L500.4100 #### [facility] [address] [place], [address] Cholesterol in LDL [Mass/Vol] 106 mg/dL Normal [facility] Comment on above: Result Comment: Bord reuloh=208-979 mg/dL Higher Kewh=138 mg/dL or greater Friedwald Equation for LDL-C Performed By: #### L 500.4050, L503.0106, L506.1001, L100.0100, L500.4100 #### [facility] [address] [place], [address] Cholesterol in VLDL [Mass/Vol] 18 mg/dL Normal 5-40 [facility] Comment on above: Performed By: #### L 500.4050, L503.0106, L506.1001, L100.0100, L500.4100 #### [facility] [address] [place], [address] Triglyceride [Mass/Vol] 88 mg/dL Normal [facility] Comment on above: Result Comment: The drugs N-Acetylcysteine and Metamizole may falsely depress this assay. Normal range: <150 mg/dL Borderline High: 150-199 mg/dL High: 200-499 mg/dL Very High: >500 mg/dL Performed By: #### L 500.4050, L503.0106, L506.1001, L100.0100, L500.4100 #### [facility] [address] [place], [address] MCV (mean corpuscular volume ) determinationOrdered By: Genia Fraire on 10-30-2024 MCV (RBC) [Entitic vol] 84.8 fL 81-99 [facility] Mean corpuscular hemoglobin (MCH) determinationOrdered By: Geniakamari Fraire on 10-30-2024 MCH (RBC) [Entitic mass] 29.3 pg 27.0-32.0 [facility] Mean corpuscular hemoglobin concentration (MCHC) determinationOrdered By: Genia Fraire on 10-30-2024 MCHC (RBC) [Mass/Vol] 34.5 g/dL 32-36 [facility] Mean platelet volume determi nationOrdered By: Genia Fraire on 10-30-2024 Platelet mean volume (Bld) [Entitic vol] 9.8 fL 6.2-12.0 [facility] Monocyte percentageOrdered B y: Genia Fraire on 10-30-2024 Monocytes/100 WBC (Bld) 6.2 % 0-10 [facility] Neutrophil percentageOrdered By: Genia Fraire on 10-30-2024 Neutrophils/100 WBC (Bld) 67.7 % 47-70 [facility] Nucleated red blood cell per centageOrdered By: Genia Fraire on 10-30-2024 Nucleated RBC/100 WBC (Bld) [Ratio] 0 % 0-5 [facility] Platelet countOrdered By: Ra rishabh Fraire on 10-30-2024 Platelets (Bld) [#/Vol] 404 10*3/uL 150-450 [facility] Potassium measurement (mass/ volume)Ordered By: Genia Fraire on 10-30-2024 Potassium (Unsp spec) [Mass/Vol] 4.3 mmol/L 3.3-5.1 [facility] RBC Auto (Bld) [#/Vol]Ordere d By: Genia Fraire on 10-30-2024 RBC (Bld) [#/Vol] 4.92 10*6/uL 4.2-5.4 [facility] Screening total cholesterol/ high density lipoprotein (HDL) cholesterol ratioOrdered By: Genia Fraire on 10-30-2024 Cholesterol.total/Cho lesterol in HDL [Mass ratio] 2.54 {ratio} [facility] Serum creatinine measurement (mass/volume)Ordered By: Genia Fraire on 10-30-2024 Creatinine [Mass/Vol] 0.76 mg/dL 0.70-1.20 [facility] Serum globulin measurementOr dered By: Genia Fraire on 10-30-2024 Globulin (S) [Mass/Vol] 3.1 g/dL 2.2-4.2 [facility] Serum glucose measurement (m ass/volume)Ordered By: Genia Fraire on 10-30-2024 Glucose [Mass/Vol] 91 mg/dL 70-99 [facility] Serum or plasma alanine nevarez otransferase (ALT) measurementOrdered By: Genia Fraire on 10-30-2024 ALT [Catalytic activity/Vol] 19 U/L <35 [facility] Serum or plasma albumin rufino urement (mass/volume)Ordered By: Genia Fraire on 10-30-2024 Albumin [Mass/Vol] 4.4 g/dL 3.4-4.8 [facility] Serum or plasma albumin/glob ulin mass ratioOrdered By: Genia Fraire on 10-30-2024 Albumin/Globulin [Mass ratio] 1.4 {ratio} 0.9-2.4 [facility] Serum or plasma alkaline wilma sphatase measurementOrdered By: Genia Fraire on 10-30-2024 ALP [Catalytic activity/Vol] 58 U/L 35-104 [facility] Serum or plasma calcium rufino urement (mass/volume)Ordered By: Genia Fraire on 10-30-2024 Calcium [Mass/Vol] 9.8 mg/dL 7.6-11.0 [facility] Serum or plasma cholesterol in HDL measurement (mass/volume)Ordered By: Genia Fraire on 10-30-2024 Cholesterol in HDL [Mass/Vol] 80 mg/dL >40 [facility] Comment on above: National Cholesterol Education Program (NCEP) guidelines:<40 mg/dL: Low HDL-cholesterol (major risk factor for CHD)>= 60 mg/dL: High HDL-cholesterol (negative risk factor for CHD)HDL-cholesterol is affected by a number of factors, e.g. smoking, exercise, hormones, sex and age. Serum or plasma cholesterol measurement (mass/volume)Ordered By: Genia Fraire on 10-30-2024 Cholesterol [Mass/Vol] 204 mg/dL High <201 [facility] Comment on above: Cholesterol level, D esirable <200 mg/dLBorderline high cholesterol 200-239 mg/dLHigh cholesterol >=240 mg/dLRecommendations of the NCEP Adult Treatment Panel for the following risk-cutoff thresholds for the [place] population. Serum or plasma urea nitroge n measurement (mass/volume)Ordered By: Genia Fraire on 10-30-2024 Urea nitrogen [Mass/Vol] 8 mg/dL 4-19 [facility] Sodium levelOrdered By: Yelena Fraire on 10-30-2024 Sodium [Moles/Vol] 135 mmol/L 133-145 [facility] Total proteinOrdered By: Desmond Fraire on 10-30-2024 Protein [Mass/Vol] 7.5 g/dL 5.9-8.4 [facility] Triglycerides measurementOrd ered By: Genia Fraire on 10-30-2024 Triglyceride [Mass/Vol] 88 mg/dL <199 [facility] Comment on above: The drugs N-Acetylcy steine and Metamizole may falsely depress this assay. Normal range: <150 mg/dLBorderline High: 150-199 mg/dLHigh: 200-499 mg/dLVery High: >500 mg/dL Vitamin B12on 10-30-2024 Cobalamin (Vitamin B12) [Mass/Vol] 163 pg/mL Low 180-914 [facility] Comment on above: Performed By: #### L 500.4050, L503.0106, L506.1001, L100.0100, L500.4100 #### [facility] [address], [place], [id number] Vitamin B12 ser/plasOrdered By: Genia Fraire on 10-30-2024 Cobalamin (Vitamin B12) [Mass/Vol] 163 pg/mL Low 180-914 [facility] Vitamin D,25 Hydroxyon 10-30 Vitamin D 25-OH 29.6 ng/mL Low 30-100 [facility] Comment on above: Result Comment: Karoline min D Status Deficiency: <20 ng/mL (50nmol/L) Insufficiency: 20-30 ng/mL (50-75 nmol/L) Sufficiency: 30-100 ng/mL (75-250 nmol/L) Toxicity: >100 ng/mL (>250 nmol/L) Performed By: #### L 500.4050, L503.0106, L506.1001, L100.0100, L500.4100 #### [facility] [address], [place], [id number] White blood cell (WBC) count Ordered By: Genia Fraire on 10-30-2024 WBC (Bld) [#/Vol] 5.1 10*3/uL 4.4-11.0 [facility] Absolute lymphocyte countOrd ered By: Genia Fraire on 10-29-2022 Lymphocytes Auto (Unsp spec) [#/Vol] 1.05 10*3/uL 0.83-4.51 [facility] Basophil percentageOrdered B y: Genia Fraire on 10-29-2022 Basophils/100 WBC (Bld) 0.7 % 0-1 [facility] Bilirubin [Mass/Vol] 0.50 mg/dL 0.20-1.00 [facility] Comment on above: For patients on eltr ombopag therapy, use of Dimension [place] TBIL is not recommended. Chloride [Moles/Vol] 99 mmol/L 98-107 [facility] Eosinophils/100 WBC (Bld) 3.0 % 0-5 [facility] Glucose [Mass/Vol] 98 mg/dL 74-106 [facility] Neutrophils (Bld) [#/Vol] 6.7 10*3/uL 2.0-7.7 [facility] Neutrophils/100 WBC (Bld) 78.8 % 47-70 [facility] Potassium [Moles/Vol] 3.9 mmol/L 3.5-5.1 [facility] Protein [Mass/Vol] 7.8 g/dL 6.4-8.2 [facility] Sodium [Moles/Vol] 132 mmol/L 136-145 [facility] WBC (Bld) [#/Vol] 8.6 10*3/uL 4.4-11.0 [facility] Blood erythrocytes count (nu mber/volume)Ordered By: Genia Fraire on 10-29-2022 RBC (Bld) [#/Vol] 5.02 10*6/uL 4.2-5.4 [facility] Blood hemoglobin measurement (mass/volume)Ordered By: Genia Fraire on 10-29-2022 Hemoglobin (Bld) [Mass/Vol] 14.4 g/dL 12.0-15.0 [facility] Blood lymphocytes/100 leukoc ytesOrdered By: Genia Fraire on 10-29-2022 Lymphocytes/100 WBC (Bld) 12.3 % 19-41 [facility] Blood monocytes/100 leukocyt esOrdered By: Genia Fraire on 10-29-2022 Monocytes/100 WBC (Bld) 5.0 % 0-10 [facility] Blood platelet mean volumeOr dered By: Genia Fraire on 10-29-2022 Platelet mean volume (Bld) [Entitic vol] 9.8 fL 6.2-12.0 [facility] Determination of erythrocyte mean corpuscular volume (MCV)Ordered By: Genia Fraire on 10-29-2022 MCV (RBC) [Entitic vol] 85.1 fL 81-99 [facility] Hematocrit Auto (Bld) [Volum e fraction]Ordered By: Genia Fraire on 10-29-2022 Hematocrit (Bld) [Volume fraction] 42.7 % 37-47 [facility] - Chemistry and C hemistry - challengeOrdered By: Genia Fraire on 10-29-2022 ALP [Catalytic activity/Vol] 65 U/L 45-117 [facility] ALT [Catalytic activity/Vol] 27 U/L 13-56 [facility] CO2 [Moles/Vol] 25.0 mmol/L 21.0-32.0 [facility] Cobalamin (Vitamin B12) [Mass/Vol] 197 pg/mL 211-911 [facility] Globulin (S) [Mass/Vol] 3.8 g/dL 2.2-4.2 [facility] Magnesium [Mass/Vol] 2.3 mg/dL 1.6-2.6 [facility] Urea nitrogen/Creatinine [Mass ratio] 6.3 mg/mg 10-20 [facility] - Hematology and Cell countsOrdered By: Genia Fraire on 10-29-2022 Erythrocyte distribution width (RBC) [Entitic vol] 36.1 fL 35.1-43.9 [facility] Erythrocyte distribution width (RBC) [Ratio] 11.7 % 11.6-14.6 [facility] Immature granulocytes/100 WBC (Bld) 0.200 % 0.0-0.9 [facility] Comment on above: IG% - Immature Granu locytes (promyelocytes, myelocytes and metamyelocytes) > 1% indicates that a LEFT SHIFT is Present. MCH (RBC) [Entitic mass] 28.7 pg 27.0-32.0 [facility] Nucleated RBC/100 WBC (Bld) [Ratio] 0 % 0-5 [facility] MCHC Auto (RBC) [Mass/Vol]Or dered By: Genia Fraire on 10-29-2022 MCHC (RBC) [Mass/Vol] 33.7 g/dL 32-36 [facility] No Panel InformationOrdered By: Genia Fraire on 10-29-2022 Estimated GFR (MDRD) Amer 93 mL/min >60 [facility] Comment on above: GFR Calc Estimated GFR (MDRD) Non-Af Amer 77 mL/min >60 [facility] Comment on above: Non- GFR Calc Vitamin D 25-Hydroxy 24.2 ng/mL [facility] Comment on above: Vitamin D 25(OH) Sta tus Range Deficiency <20 ng/mL (50nmol/L) Insufficiency 20 - 30 ng/mL (50 - 75 nmol/L) Sufficiency 30 - 100 ng/mL (75 - 250 nmol/L) Toxicity >100 ng/mL (>250 nmol/L) Platelets bldOrdered By: Desmond Fraire on 10-29-2022 Platelets (Bld) [#/Vol] 414 10*3/uL 150-450 [facility] Serum or plasma albumin rufino urement (mass/volume)Ordered By: Genia Fraire on 10-29-2022 Albumin [Mass/Vol] 4.0 g/dL 3.2-5.0 [facility] Serum or plasma albumin/glob ulin mass ratioOrdered By: Genia Fraire on 10-29-2022 Albumin/Globulin [Mass ratio] 1.1 {ratio} 0.9-2.4 [facility] Serum or plasma calcium rufino urement (mass/volume)Ordered By: Genia Fraire on 10-29-2022 Calcium [Mass/Vol] 9.1 mg/dL 8.5-10.1 [facility] Serum or plasma creatinine m easurement (mass/volume)Ordered By: Genia Fraire on 10-29-2022 Creatinine [Mass/Vol] 0.80 mg/dL 0.55-1.02 [facility] Comment on above: The validity of the calculated GFR & GFRAA in patients over 70 years has not been determined. Clinical correlation is essential. Serum or plasma urea nitroge n measurement (mass/volume)Ordered By: Genia Fraire on 10-29-2022 Urea nitrogen [Mass/Vol] 5 mg/dL 7-18 [facility] Thin prep Papanicolaou smear with manual screeningOrdered By: Genia Fraire on 10-29-2022 Thin prep Papanicolaou smear with manual screening 23 U/L 15-37 [facility] Thin prep Papanicolaou smear with manual screening 8 5-15 [facility] Absolute lymphocyte countOrd ered By: Loyd Persaud on 10-25-2022 Lymphocytes Auto (Unsp spec) [#/Vol] 1.53 10*3/uL 0.83-4.51 [facility] Basophil percentageOrdered B y: Loyd Persaud on 10-25-2022 Basophils/100 WBC (Bld) 0.7 % 0-1 [facility] Chloride [Moles/Vol] 99 mmol/L 98-107 [facility] Eosinophils/100 WBC (Bld) 5.5 % 0-5 [facility] Glucose [Mass/Vol] 109 mg/dL 74-106 [facility] Comment on above: Fasting Glucose resu lt from 100 to 125 mg/dL suggests IMPAIRED HOMEOSTASIS per A.D.A. criteria. Neutrophils (Bld) [#/Vol] 7.8 10*3/uL 2.0-7.7 [facility] Neutrophils/100 WBC (Bld) 72.8 % 47-70 [facility] Potassium [Moles/Vol] 3.6 mmol/L 3.5-5.1 [facility] Sodium [Moles/Vol] 135 mmol/L 136-145 [facility] WBC (Bld) [#/Vol] 10.7 10*3/uL 4.4-11.0 [facility] Blood erythrocytes count (nu mber/volume)Ordered By: Loyd Persaud on 10-25-2022 RBC (Bld) [#/Vol] 4.90 10*6/uL 4.2-5.4 [facility] Blood hemoglobin measurement (mass/volume)Ordered By: Loyd Persaud on 10-25-2022 Hemoglobin (Bld) [Mass/Vol] 13.9 g/dL 12.0-15.0 [facility] Blood lymphocytes/100 leukoc ytesOrdered By: Loydhu Persaud on 10-25-2022 Lymphocytes/100 WBC (Bld) 14.3 % 19-41 [facility] Blood monocytes/100 leukocyt esOrdered By: Loydhu Persaud on 10-25-2022 Monocytes/100 WBC (Bld) 6.4 % 0-10 [facility] Blood platelet mean volumeOr dered By: Loyd Persaud on 10-25-2022 Platelet mean volume (Bld) [Entitic vol] 10.1 fL 6.2-12.0 [facility] Determination of erythrocyte mean corpuscular volume (MCV)Ordered By: Loydhu Persaud on 10-25-2022 MCV (RBC) [Entitic vol] 84.9 fL 81-99 [facility] Hematocrit Auto (Bld) [Volum e fraction]Ordered By: Loydhu Persaud on 10-25-2022 Hematocrit (Bld) [Volume fraction] 41.6 % 37-47 [facility] - Chemistry and C hemistry - challengeOrdered By: [facility] CO2 [Moles/Vol] 28.0 mmol/L 21.0-32.0 [facility] Urea nitrogen/Creatinine [Mass ratio] 8.3 mg/mg 10-20 [facility] - Hematology and Cell countsOrdered By: Loyd Persaud on 10-25-2022 Erythrocyte distribution width (RBC) [Entitic vol] 36.4 fL 35.1-43.9 [facility] Erythrocyte distribution width (RBC) [Ratio] 11.9 % 11.6-14.6 [facility] Immature granulocytes/100 WBC (Bld) 0.300 % 0.0-0.9 [facility] Comment on above: IG% - Immature Granu locytes (promyelocytes, myelocytes and metamyelocytes) > 1% indicates that a LEFT SHIFT is Present. MCH (RBC) [Entitic mass] 28.4 pg 27.0-32.0 [facility] Nucleated RBC/100 WBC (Bld) [Ratio] 0 % 0-5 [facility] MCHC Auto (RBC) [Mass/Vol]Or dered By: Loydhu Persaud on 10-25-2022 MCHC (RBC) [Mass/Vol] 33.4 g/dL 32-36 [facility] No Panel InformationOrdered By: Loyd Persaud on 10-25-2022 Estimated Creatinine Clearance Calc 56.71 ml/min [facility] Estimated GFR (MDRD) Amer 88 mL/min >60 [facility] Comment on above: GFR Calc Estimated GFR (MDRD) Non-Af Amer 73 mL/min >60 [facility] Comment on above: Non- GFR Calc Troponin I High Sensitivity 3 pg/mL 3.0-54.0 [facility] Comment on above: Please Note: New Saige t Units and Gender Specific Reference Ranges. For more information see Policy Stat Procedure [place] High Sensitivity Troponin (TNIH) and attachments. Platelets bldOrdered By: Loyd Persaud on 10-25-2022 Platelets (Bld) [#/Vol] 411 10*3/uL 150-450 [facility] Serum or plasma calcium rufino urement (mass/volume)Ordered By: Loydhu Persaud on 10-25-2022 Calcium [Mass/Vol] 9.4 mg/dL 8.5-10.1 [facility] Serum or plasma creatinine m easurement (mass/volume)Ordered By: Loyd Persaud on 10-25-2022 Creatinine [Mass/Vol] 0.84 mg/dL 0.55-1.02 [facility] Comment on above: The validity of the calculated GFR & GFRAA in patients over 70 years has not been determined. Clinical correlation is essential. Serum or plasma urea nitroge n measurement (mass/volume)Ordered By: Loyd Persaud on 10-25-2022 Urea nitrogen [Mass/Vol] 7 mg/dL 7-18 [facility] Thin prep Papanicolaou smear with manual screeningOrdered By: Count Includes [facility] on 10-25-2022 Thin prep Papanicolaou smear with manual screening 8 5-15 [facility] 2018 Novel Coronavirus (COVI D-19), CRUZ ([id number])Ordered By: Warp Coiler on 03-23-20202018 Novel Coronavirus (COVID-19), CRUZ ([id number]) Not Detected Normal [facility]; [facility] Work Phone: Comment on above: This nucleic acid am plification test was developed and its performancecharacteristics determined by [facility]. Nucleic acidamplification tests include PCR and TMA. [...] this assay. PATIENT NOT FASTINGP ERFORMED BY: [facility] [id number] [facility] [place] [id number] Vital Signs Date Time Vital Sign Value Performing Clinician Tasha blair 10-25-2022 22:42-0400 Heart rate 88 /min [facility] 10-25-2022 22:42-0400 Respiratory rate 17 /min [place] 10-25-2022 22:42-0400 SaO2% (BldA) [Mass fraction] 100 % [facility] 10-25-2022 20:36-0400 Body height 160.[address] [facility] 10-25-2022 20:36-0400 Body mass index (BMI) [Ratio] 21.9 kg/m2 [facility] 10-25-2022 20:36-0400 Body temperature 97.3 [degF] [place] 10-25-2022 20:36-0400 Body weight 56.[address] [facility] 10-25-2022 20:36-0400 Diastolic blood pressure 99 mm[Hg] [facility] 10-25-2022 20:36-0400 Systolic blood pressure 148 mm[Hg] [facility] Encounters Encounter Date Encounter Type Care Provider Facility Start: 11-23-2024 ambulatory [facility] Facility:[facility] Start: 11-05-2024 ambulatory [facility] Facility:[facility] Start: 10-30-2024 End: 10-30-2024 ambulatory Genia Fraire [employer]ING [employer]INE 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-C Work Phone: -[facility] Pamela Deleon [facility] Start: 10-30-2024 End: 10-30-2024 Patient encounter procedure Genia Juno [employer]ING 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-C -Laboratory Pamela Deleon [facility] Start: 10-30-2024 End: 10-30-2024 ambulatory Genia Fraire Facility:[facility] Start: 10-29-2022 End: 10-29-2022 ambulatory [facility] Work Phone: Start: 10-29-2022 End: 10-29-2022 Patient encounter procedure [facility]atory, Pamela Deleon [facility] Start: 10-25-2022 End: 10-25-2022 Emergency department patient visit [facility] Work Phone: Start: 03-23-2020 End: 04-17-2020 Office outpatient visit 10 minutes Xiomara Love [facility] Procedures Date Procedure Procedure Detail Performing Clinician Start: 10-30-2024 Vitamin D, 25-hydrox y measurement Genia Juno [employer]ING MACHINE 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-C Work Phone: Comment on above: Vitamin D StatusDefi ciency: <20 ng/mL (50nmol/L)Insufficiency: 20-30 ng/mL (50-75 nmol/L)Sufficiency: 30-100 ng/mL (75-250 nmol/L)Toxicity: >100 ng/mL (>250 nmol/L) Start: 10-29-2022 X-ray of cervical spine Plan of Treatment Date Care Activity Detail Author Patient Education ED Anxiety Reaction [facility] Work Phone: Patient referral [facility] Work Phone: Payers Date Payer Category Payer Medicare [id number] 2024 Medicare [id number] 2024 Self-pay [id number] Unknown Abran GUSTAFSON/REY Unknown [id number] Unknown [id number] Unknown [id number] Unknown [id number] Social History Date Type Detail Facility Start: [facility] Start: 1960 Sex Assigned At Female [facility] Start: 11-03-2024 [facility]finding[facility] Mental Status Date Assessment Result Facility 10-25-2022 Cognitive function Level Of Cons ciousness Awake;Alert;Appropriate;Follow s Commands [facility] Work Phone: Discharge summary 10-25-2022 Note Date & Type Note Facility 10-25-2022 Discharge summary Note Date/Time October 25, 2022 9:15pm [facility] Medical Records Department [address] [place] [address] Emergency Department Summary 10/25/22 MR#: [id number] Acct: [id number] Name: JOSHUA HUBBARD Rep #: [id number] : 1960 62 From: Loyd Persaud MD PCP: Dr. Emile Ludwig DO Status:REG ER Location: ED ADDENDUM by Dr. Loyd Persaud MD on 10/25/22 at 2211 EKG is normal with a rate of 87. MO interval is 130 ms. QRS duration 82 ms. QT duration 358 ms. [place] is normal. 10/25/22 2211<Electronically signed by Loyd Persaud MD> Cosigner Signature (if applicable): cc: Dr. Emile Ludwig DO ~* Signed [facility] History of Present Illness Chief Complaint: Other, [...] similar symptoms: No Recent Illness/Hospitalization: No PFSH PFS Medical History Abnormal Pap smear of cervix [...] home: Yes additional social history: Sushant MAO ROS ED Constitutional Constitutional ED: Denies chills, fever(s), [...] 72.8 H Lymph % (Auto) 14.3 L Butler % (Auto) 6.4 Eos % (Auto) 5.5 [...] your Primary Care Provider. Call [facility] ([phone]) or report to the closest Emergency Room. Call 911 if necessary. 10/25/222210 <Electronically signed by Loyd Persaud MD> Cosigner Signature (if applicable): CC: Dr. Emile Ludwig DO ~ Signed [facility] Work Phone: Evaluation note Note Date & Type Note Facility Evaluation note No assessment information availa ble [facility] Work Phone: Reason for referral (narrative) Note Date & Type Note Facility Reason for referral (narrative) No reason for referral information available [facility] Work Phone: Chief Complaint and Reason [...] Yes October 25, 2022 9:21pm Power of Relocation Services Specialist Yes October 25 9:21pm Name of Medical Power of Relocation Services Specialist gabriella cox husb and October 25, 2022 9:21pm Summary [...] Emergency Provi vince Active Dr. Emile Ludwig DO Primary Care Provider Active Team Status: Inactive Member Role Status Dates TUSHAR Mendez Primary Care Provide r, Attending Provider, Referring Provider Active Team Status: Active Member Role/Relationship Status Dates TUSHAR Mendez Primary Care Provider Active Team Status: Inactive Member Role/Relationship Status Dates TUSHAR Mendez Primary Care Provider Active Start: October 30, 2024 End: October 30, 2024 TUSHAR Mendez Attending Provider Active St art: October 30, 2024 End: October 30, 2024 Goals (unrecognized section and content) Goals may be documented in a n alternate sectionGoals may be documented in an alternate sectionGoals may be documented in an alternate section INFORMATION SOURCE (unrecogn ized section and content) DATE CREATED AUTHOR 11/22/2024 [facility] FOR RECORDS PERTAINING TO PATIENTS WHO [...] BE BASED ON THE PRIMARY CLINICAL RECORDS. [facility] [facility]. provides no warranty or guarantee of the accuracy or completeness of information in this document.
== END | disposition home or self-care (01) ==
PROVIDERS: PCP Nurse Practitioner Family; Referring Provider Nurse Practitioner Family; Visit Provider Nurse Practitioner Family
DX: Z12.31 Encounter for screening mammogram for malignant neoplasm of breast (principal); Z78.0 Asymptomatic menopausal state; M81.0 Age-related osteoporosis without current pathological fracture
CPT/HCPCS: 77063; 77067; 77080

== ENCOUNTER → 2025-01-18 | Outpatient (CLI) | payer MEDICARE, BC, SELFPAY ==
[2025-01-20 16:10] LABS: HPV APTIMA, High Risk Negative (Negative)
== END | disposition home or self-care (01) ==
LOC: LABSPEC 11:40
PROVIDERS: PCP Nurse Practitioner Family; Visit Provider Nurse Practitioner Women's Health
DX: Z12.4 Encounter for screening for malignant neoplasm of cervix (principal)
CPT/HCPCS: 87624; 88175; G0145